=== PATIENT | male | born 1960 | race Caucasian/White ===

== ENCOUNTER 2016-09-12 06:55 | Emergency (ER) | payer BC ==
[2016-09-12] MEDS ORDERED: SODIUM CHLORIDE 0.9% 1,000 ML IV STA ×2 (07:25)
--- NOTE | 2016-09-12 07:28 | ED ---
Dizziness HPI - General Chief Complaint: Dizziness Stated Complaint: Dizzinesss/Headache Time Seen by Provider: 09/12/16 07:09 Source: patient Mode of arrival: ambulatory Limitations: no limitations - History of Present Illness Initial Comments: This is a 56-year-old male who is insulin-dependent diabetic who complains waking up around 5:30 this morning with profound dizziness when he tries get out of bed. He states he was feeling well yesterday he has had no recent cold or flu he also had a generalized headache to [place] pressure that was brief. He states the headache is gone now he does get dizzy when he moves his head up or down her left or right. He denies any focal weakness but does generally feel weak. He does admit that he did not drink any water yesterday he drinks coffee but does not drink a lot of fluids normally. He states she's been having kidney pain intermittently. He also has some pressure when he tries to urinate which is relieved after urinating. No other complaints he does use an insulin pump. MD Complaint: dizziness, other - Related Data Home Medications Medication Instructions Recorded Confirmed Escitalopram [Lexapro] 10 mg PO DAILY 09/12/16 09/12/16 Insulin Regular [humuLIN R] 09/12/16 09/12/16 Nadolol 40 mg PO DAILY 09/12/16 09/12/16 Previous Rx's Medication Instructions Recorded Meclizine [Antivert] 25 mg PO TID #20 tab 09/12/16 Allergies Allergy/AdvReac Type Severity Reaction Status Date / Time vancomycin Allergy Rash/Hives Verified 09/12/16 07:05 Review of Systems ROS Statement: Those systems with pertinent positive or pertinent negative responses have been documented in the HPI. ROS Other: All systems not noted in ROS Statement are negative. Past Medical History Past Medical History: Diabetes Mellitus, Hypertension History of Any Multi-Drug Resistant Organisms: None Reported Past Surgical History: Orthopedic Surgery Additional Past Surgical History / Comment(s): ankle sx Past Psychological History: Depression Smoking Status: Former smoker Past Alcohol Use History: Rare Past Drug Use History: None Reported General Exam - General Exam Comments Initial Comments: This is a well-developed well-nourished awake alert oriented 3 male Limitations: no limitations General appearance: alert, in no apparent distress Head exam: Present: atraumatic, normocephalic, normal inspection Eye exam: Present: normal appearance, PERRL, EOMI. Absent: scleral icterus, conjunctival injection, periorbital swelling ENT exam: Present: mucous membranes dry Neck exam: Present: normal inspection. Absent: tenderness, meningismus, lymphadenopathy Respiratory exam: Present: normal lung sounds bilaterally. Absent: respiratory distress, wheezes, rales, rhonchi, stridor Cardiovascular Exam: Present: regular rate, normal rhythm, normal heart sounds. Absent: systolic murmur, diastolic murmur, rubs, gallop, clicks GI/Abdominal exam: Present: soft, normal bowel sounds. Absent: distended, tenderness, guarding, rebound, rigid Extremities exam: Present: full ROM, normal capillary refill, other (Some evidence of stasis dermatitis). Absent: tenderness, pedal edema, joint swelling , calf tenderness Back exam: Present: normal inspection Neurological exam: Present: alert, oriented X3, CN II-XII intact Psychiatric exam: Present: normal affect, normal mood Skin exam: Present: warm, dry, intact, normal color. Absent: rash Course Vital Signs 09/12/16 06:59 Temperature 97.8 F Pulse Rate 75 Respiratory 18 Rate Blood Pressure 175/85 O2 Sat by Pulse 99 Oximetry Medical Decision Making - Medical Decision Making Did discuss findings with the patient and his . Patient's presentation is consistent with benign positional vertigo. His blood sugar was somewhat elevated. He was instructed to increase his oral fluids as he has not been drinking much water. Follow-up with his doctor return when necessary additionally his symptoms with respect to his bladder likely secondary to prostatism. He will follow-up with his doctor for this. - Lab Data Result diagrams: 09/12/16 07:20 09/12/16 07:20 Lab Results 09/12/16 09/12/16 09/12/16 Range/Units 07:20 07:20 07:20 WBC 6.1 (3.8-10.6) k/uL RBC 4.70 (4.30-5.90) m/uL Hgb 14.3 (13.0-17.5) gm/dL Hct 41.7 (39.0-53.0) % MCV 88.6 (80.0-100.0) fL MCH 30.4 (25.0-35.0) pg MCHC 34.3 (31.0-37.0) g/dL RDW 13.1 (11.5-15.5) % Plt Count 249 (150-450) k/uL Neutrophils % 45 % Lymphocytes % 33 % Monocytes % 11 % Eosinophils % 7 % Basophils % 2 % Neutrophils # 2.8 (1.3-7.7) k/uL Lymphocytes # 2.0 (1.0-4.8) k/uL Monocytes # 0.7 (0-1.0) k/uL Eosinophils # 0.4 (0-0.7) k/uL Basophils # 0.1 (0-0.2) k/uL Sodium 141 (137-145) mmol/L Potassium 4.0 (3.5-5.1) mmol/L Chloride 106 (98-107) mmol/L Carbon Dioxide 26 (22-30) mmol/L Anion Gap 9 mmol/L BUN 17 (9-20) mg/dL Creatinine 0.72 (0.66-1.25) mg/dL Est GFR (MDRD) Af Amer >60 (>60 ml/min/1.73 sqM) Est GFR (MDRD) Non-Af >60 (>60 ml/min/1.73 sqM) Glucose 224 H (74-99) mg/dL Calcium 9.3 (8.4-10.2) mg/dL Magnesium 1.9 (1.6-2.3) mg/dL Total Bilirubin 0.6 (0.2-1.3) mg/dL AST 46 (17-59) U/L ALT 63 (21-72) U/L Alkaline Phosphatase 80 (38-126) U/L Total Creatine Kinase 275 H (55-170) U/L CK-MB (CK-2) 2.8 H* (0.0-2.4) ng/mL CK-MB (CK-2) Rel Index 1.0 Troponin I <0.012 (0.000-0.034) ng/mL Total Protein 7.6 (6.3-8.2) g/dL Albumin 4.3 (3.5-5.0) g/dL Amylase 62 (30-110) U/L Urine Color Urine Appearance (Clear) Urine pH (5.0-8.0) Ur Specific [place] (1.001-1.035) Urine Protein (Negative) Urine Glucose (UA) (Negative) Urine Ketones (Negative) Urine Blood (Negative) Urine Nitrite (Negative) Urine Bilirubin (Negative) Urine Urobilinogen (<2.0) mg/dL Ur Leukocyte Esterase (Negative) 09/12/16 Range/Units 07:45 WBC (3.8-10.6) k/uL RBC (4.30-5.90) m/uL Hgb (13.0-17.5) gm/dL Hct (39.0-53.0) % MCV (80.0-100.0) fL MCH (25.0-35.0) pg MCHC (31.0-37.0) g/dL RDW (11.5-15.5) % Plt Count (150-450) k/uL Neutrophils % % Lymphocytes % % Monocytes % % Eosinophils % % Basophils % % Neutrophils # (1.3-7.7) k/uL Lymphocytes # (1.0-4.8) k/uL Monocytes # (0-1.0) k/uL Eosinophils # (0-0.7) k/uL Basophils # (0-0.2) k/uL Sodium (137-145) mmol/L Potassium (3.5-5.1) mmol/L Chloride (98-107) mmol/L Carbon Dioxide (22-30) mmol/L Anion Gap mmol/L BUN (9-20) mg/dL Creatinine (0.66-1.25) mg/dL Est GFR (MDRD) Af Amer (>60 ml/min/1.73 sqM) Est GFR (MDRD) Non-Af (>60 ml/min/1.73 sqM) Glucose (74-99) mg/dL Calcium (8.4-10.2) mg/dL Magnesium (1.6-2.3) mg/dL Total Bilirubin (0.2-1.3) mg/dL AST (17-59) U/L ALT (21-72) U/L Alkaline Phosphatase (38-126) U/L Total Creatine Kinase (55-170) U/L CK-MB (CK-2) (0.0-2.4) ng/mL CK-MB (CK-2) Rel Index Troponin I (0.000-0.034) ng/mL Total Protein (6.3-8.2) g/dL Albumin (3.5-5.0) g/dL Amylase (30-110) U/L Urine Color Yellow Urine Appearance Clear (Clear) Urine pH 5.5 (5.0-8.0) Ur Specific [place] 1.024 (1.001-1.035) Urine Protein Negative (Negative) Urine Glucose (UA) 4+ H (Negative) Urine Ketones Trace H (Negative) Urine Blood Negative (Negative) Urine Nitrite Negative (Negative) Urine Bilirubin Negative (Negative) Urine Urobilinogen <2.0 (<2.0) mg/dL Ur Leukocyte Esterase Negative (Negative) - Radiology Data Radiology results: report reviewed (I did review the imaging and reports no acute findings.), image reviewed Disposition Clinical Impression: Benign paroxysmal positional vertigo, Dehydration, Hyperglycemia Disposition: HOME SELF-CARE Condition: Good Instructions: Dizziness (ED), Benign Paroxysmal Positional Vertigo (ED), Dehydration (ED) Prescriptions: Meclizine [Antivert] 25 mg PO TID #20 tab
[2016-09-12 07:38] LABS: Basophils # (A) 0.1 k/uL (0-0.2); Basophils % (A) 2 %; CH 30.7; CHCM 34.8; Eosinophils # (A) 0.4 k/uL (0-0.7); Eosinophils % (A) 7 %; HCT 41.7 % (39.0-53.0); HDW 2.45; HGB 14.3 gm/dL (13.0-17.5); Luc # (Auto) 0.17; Luc % (Auto) 3; Lymphocytes % (A) 33 %; MCH 30.4 pg (25.0-35.0); MCHC 34.3 g/dL (31.0-37.0); MCV 88.6 fL (80.0-100.0); Mean Platelet Volume 7.1; Monocytes # (A) 0.7 k/uL (0-1.0); Monocytes % (A) 11 %; Neutrophils # (A) 2.8 k/uL (1.3-7.7); Neutrophils % (A) 45 %; RDW 13.1 % (11.5-15.5); WBC 6.1 k/uL (3.8-10.6); WBC (Perox) 5.91
[2016-09-12 07:58] LABS: ALT 63 U/L (21-72); AST 46 U/L (17-59); Alkaline Phosphatase 80 U/L (38-126); Amylase 62 U/L (30-110); Anion Gap 9 mmol/L; Blood Urea Nitrogen 17 mg/dL (9-20); Calcium 9.3 mg/dL (8.4-10.2); Carbon Dioxide 26 mmol/L (22-30); Chloride 106 mmol/L (98-107); Glucose 224 mg/dL (74-99); Magnesium 1.9 mg/dL (1.6-2.3); Non-African American GFR(MDRD) >60 (>60 ml/min/1.73 sqM); Sodium 141 mmol/L (137-145); Total Bilirubin 0.6 mg/dL (0.2-1.3); Total Protein 7.6 g/dL (6.3-8.2)
[2016-09-12 08:08] LABS: Creatine Kinase 275 U/L (55-170)
[2016-09-12 08:10] LABS: Appearance,Urine Clear (Clear); Bilirubin,Urine Negative (Negative); Glucose,Urine (UA) 4+ (Negative); Ketones,Urine Trace (Negative); Leukocyte Esterase,Urine Negative (Negative); Nitrite,Urine Negative (Negative); PH, Urine 5.5 (5.0-8.0); Protein,Urine Negative (Negative); Specific Gravity,Urine 1.024 (1.001-1.035); UA Billing (MACRO vs. MICRO) CHEM; Urobilinogen,Urine <2.0 mg/dL (<2.0)
[2016-09-12 08:20] LABS: Troponin I <0.012 ng/mL (0.000-0.034)
[2016-09-12 08:22] LABS: Creatine Kinase MB 2.8 ng/mL (0.0-2.4)
--- NOTE | 2016-09-12 09:16 | CT ---
EXAMINATION TYPE: CT brain wo con DATE OF EXAM: 09/12/2016 8:54 AM COMPARISON: NONE INDICATION: Patient having dizziness and alot of head pressure DLP: 922.7 mGycm, Automated exposure control for dose reduction was used. CONTRAST: None CT of the brain is performed utilizing 3 mm thick sections through the posterior fossa and 3 mm thick sections through the remaining calvarium. Study is performed within 24 hours of arrival to the hosp [facility]. No abnormal hyperdensity is present to suggest an acute intracranial hemorrhage. No mass lesion is evident. No acute infarcts are evident. Ventricles and sulci are appropriate for the patient age. Paranasal sinuses and mastoid air cells within the [id number] are clear. IMPRESSIONS: 1. No acute intracranial process.
[2016-09-12] MEDS ORDERED: MECLIZINE 12.5 MG TAB PO STA (09:21)
--- NOTE | 2016-09-12 09:25 | XR ---
EXAMINATION TYPE: XR chest 2V DATE OF EXAM: 09/12/2016 9:15 AM COMPARISON: 08/12/2011 INDICATION: Cough headache TECHNIQUE: Frontal and lateral views of the chest are obtained. FINDINGS: The heart size is normal. The pulmonary vasculature is normal. The lungs are clear. IMPRESSION: 1. No acute pulmonary process.
[2016-09-12 10:04] VITALS: BP 159/80; PULSE 67; RESP 18; TEMP 98.1
== END 2016-09-12 10:06 | disposition home or self-care (01) ==
LOC: EC 06:55
DX: H81.10 Benign paroxysmal vertigo, unspecified ear (principal); E11.65 Type 2 diabetes mellitus with hyperglycemia; E86.0 Dehydration; I87.2 Venous insufficiency (chronic) (peripheral); I10 Essential (primary) hypertension; F32.9 Major depressive disorder, single episode, unspecified; Z87.891 Personal history of nicotine dependence; Z79.4 Long term (current) use of insulin; Z79.899 Other long term (current) drug therapy; Z88.1 Allergy status to other antibiotic agents
CPT/HCPCS: 36415; 70450; 71020; 80053; 81003; 82150; 82550; 82553; 83735; 84484; 85025; 93005; 99284

== ENCOUNTER 2016-10-29 07:07 | Day surgery (SDC) | payer BC ==
[2016-10-27 16:28] VITALS: BMI 33.0
[~2016-10-29 07:07] MED LIST: LACTATED RINGERS 1,000 ML IV SCH; LIDOCAINE 1% 20 ML VIAL (10MG/ML) FOR IV START INTRADERMA PRN
[2016-10-29 07:20] VITALS: TEMP 98.1
[2016-10-29] MEDS ORDERED: LACTATED RINGERS 1,000 ML IV ONE (07:30)
[2016-10-29 07:34] LABS: Glucose,Whole Blood 189 mg/dL (75-99)
[2016-10-29] MEDS ORDERED: LIDOCAINE 1% INJ 10MG/ML (20 ML MDV) ONE (07:43)
[2016-10-29] MEDS ORDERED: PROPOFOL 10 MG/ML 20 ML VIAL IV ONE (07:43)
--- NOTE | 2016-10-29 07:50 | P.GSHP ---
History of Present Illness H&P Date: 10/29/16 Chief Complaint: History of colonic polyps Porter Bath 56-year-old male referred from Dr. Kendrick Hernandez. Patient rents today for colonoscopy. He had a. Colonoscopy 3 years ago which was found have benign colon polyps. Past Medical History Past Medical History: Diabetes Mellitus, Hypertension, Osteoarthritis (OA), Skin Disorder Additional Past Medical History / Comment(s): MIGRAINES, NECK AND BACK PAIN, SORES ON LEGS FROM DIABETES, STATES LEFT ARM NUMBNESS. , EPISODE OF VERTIGO ( AUGUST 2016), NEUROPATHY OF FEET AND HANDS. , OCCASIONAL BLOOD WITH BOWEL MOVEMENTS. History of Any Multi-Drug Resistant Organisms: None Reported Past Surgical History: Heart Catheterization, Orthopedic Surgery Additional Past Surgical History / Comment(s): ankle sx Past Anesthesia/Blood Transfusion Reactions: No Reported Reaction Past Psychological History: Depression Smoking Status: Former smoker Past Alcohol Use History: Rare Additional Past Alcohol Use History / Comment(s): QUIT SMOKING 28 YRS AGO., SMOKED 1-2 PPD. Past Drug Use History: None Reported - Past Family History Sister(s) Family Medical History: Cancer Medications and Allergies Home Medications Medication Instructions Recorded Confirmed Type Nadolol 40 mg PO DAILY 09/12/16 10/27/16 History Atorvastatin [Lipitor] 20 mg PO DAILY 10/27/16 10/27/16 History Insulin Aspart (For Pump) [NovoLOG 1 dose SQ-PUMP CONTINUOUS 10/27/16 10/27/16 History (For Pump)] Allergies Allergy/AdvReac Type Severity Reaction Status Date / Time vancomycin Allergy Rash/Hives Verified 10/27/16 16:09 Surgical - Exam Vital Signs Temp Pulse Resp BP Pulse Ox 98.1 F 74 18 164/76 98 10/29/16 07:19 10/29/16 07:19 10/29/16 07:19 10/29/16 07:19 10/29/16 07:19 - General well developed, no distress - Eyes PERRL - ENT normal pinna - Neck no masses - Respiratory normal expansion - Cardiovascular Rhythm: regular - Abdomen Abdomen: soft, non tender Results - Labs Abnormal Lab Results - Last 24 Hours (Table) 10/29/16 Range/Units 07:28 POC Glucose (mg/dL) 189 H (75-99) mg/dL Assessment and Plan Plan: History of colonic polyps. We'll perform colonoscopy.
--- NOTE | 2016-10-29 08:09 | P.OP ---
Date of Procedure: 10/29/16 Preoperative Diagnosis: History of colonic polyps Postoperative Diagnosis: Rectal polyp Diverticulosis Procedure(s) Performed: colonoscopy Implants: Anesthesia: MAC Surgeon: Stanislav Bennett Pathology: other (Colon polyp) Condition: stable Disposition: PACU Indications for Procedure: Operative Findings: Description of Procedure: The patient's placed on the endoscopy table in the lateral position. He received IV sedation. Digital rectal exam was performed which revealed no abnormalities. The prostate was symmetric without nodules. The flexible colonoscope was then placed patient anus passed throughout the entire colon. The ileocecal valve was visually is. The cecum, ascending, transverse and descending colon appeared normal. In the sigmoid colon there was diverticular changes. Scope was then brought back the rectum and at the 20 cm ranjith there was a large concrete polyp. This removed the snare. Scope was brought back further in the rectum and this appeared normal. Scope was withdrawn for patient.
[2016-10-29 08:12] VITALS: RESP 16
[2016-10-29 08:26] VITALS: BP 102/58; PULSE 66
== END 2016-10-29 09:07 | disposition home or self-care (01) ==
LOC: ORWHC2ENDO 07:07
PROVIDERS: ATTEND Surgery
DX: Z12.11 Encounter for screening for malignant neoplasm of colon (principal); K62.1 Rectal polyp; K57.30 Diverticulosis of large intestine without perforation or abscess without bleeding; Z86.010 Personal history of colon polyps; E11.9 Type 2 diabetes mellitus without complications; G62.9 Polyneuropathy, unspecified; I10 Essential (primary) hypertension; M19.90 Unspecified osteoarthritis, unspecified site; Z79.4 Long term (current) use of insulin; Z87.891 Personal history of nicotine dependence; Z88.1 Allergy status to other antibiotic agents
CPT/HCPCS: 88305; 45385; J2001; J2704

== ENCOUNTER → 2016-12-02 | Outpatient (CLI) | payer BC ==
--- NOTE | 2016-12-02 16:44 | US ---
EXAMINATION TYPE: US kidneys/renal and bladder DATE OF EXAM: 12/02/2016 COMPARISON: NONE CLINICAL HISTORY: 56-year-old male N28.9 KIDNEY PAIN. TECHNIQUE: Multiple sonographic images of the kidneys and bladder were obtained. FINDINGS: EXAM MEASUREMENTS: Right Kidney: 12.2 x 6.7 x 6.4 cm Left Kidney: 12.9 x 6.5 x 6.6 cm No hydronephrosis on either side. The software sales notes scattered echogenic foci during real-time scanning which could represent small nonobstructive calculi. This is not as apparent on the provided images. No gross abnormality of the partially urine distended bladder. IMPRESSION: 1. No hydronephrosis. 2. The software sales indicates echogenic foci in both kidneys during real-time scanning that could repr esent tiny nonobstructive calculi. This is not as apparent on the provided images.
== END ==
LOC: RADUSWWP 15:28
PROVIDERS: ATTEND Family Medicine
DX: N23 Unspecified renal colic (principal)
CPT/HCPCS: 76770

== ENCOUNTER → 2018-08-28 | Outpatient (CLI) | payer BC | LOC: RADMRIMAIN 07:36 | PROVIDERS: ATTEND Psychiatry & Neurology Neurology | DX: Z53.9 Procedure and treatment not carried out, unspecified reason (principal) ==

== ENCOUNTER → 2018-08-28 | Outpatient (CLI) | payer BC ==
--- NOTE | 2018-08-29 08:00 | MR ---
EXAMINATION TYPE: [facility] brain [facility] DATE OF EXAM: 08/28/2018 COMPARISON: CT brain 09/12/2016 HISTORY: TIA TECHNIQUE: Multiplanar, multisequence images of the brain and brainstem is performed without and with IV contras t, utilizing 12 mL intravenous Gadavist . [id number] and postcontrast images obtained through the neck, three-dimensional reconstructions on an alternate workstation. FINDINGS: Diffusion weighted images demonstrate no evidence of a recent infarct or other diffusion ab normality. There is no extra-axial fluid collection. Scattered hyperintensities are present within the periventricular and subcortical white matter on inversion recovery T2-weighted sequences, approxi mately 5-10 lesions are present. Largest lesion in the left frontal region on axial image 16 measures approximately 5 mm. The ventricular system and cisternal spaces are normal in size and appearance. The brain volume is age appropriate. Midline structures demonstrate normal morphology. The craniocervical junction appears within normal limits. Post contrast images demonstrate linear serpiginous enhancement in the posterior parietal lo be on the right suggestive of venous malformation, possible venous angioma. The dural venous sinuses appear patent. The visualized sinuses are remarkable for inflammatory change in the ethmoid air cells , frontal sinus, sphenoid sinus, and the globes are intact. IMPRESSION: Nonspecific white matter demyelination may be due to chronic small vessel ischemia, hyper tension, migraine headaches. There is no restricted diffusion to suggest subacute ischemia. Sinus dis ease. MRA NECK: The innominate artery, left and right common carotid arteries, left and right subclavian ar teries, bilateral vertebral arteries are patent. The right vertebral artery is dominant. Proximal int ernal carotid arteries show no stenosis. There is no evident dissection or aneurysm. Internal and ext ernal carotid arteries are patent. IMPRESSION: No significant stenosis.
== END ==
LOC: RADMRIMAIN 12:30
PROVIDERS: ATTEND Psychiatry & Neurology Neurology
DX: G44.52 New daily persistent headache (NDPH) (principal); G45.9 Transient cerebral ischemic attack, unspecified
CPT/HCPCS: 82565; 70549; 70553; 36415; A9585

== ENCOUNTER 2018-10-16 15:43 | Emergency (ER) | payer BC ==
[2018-10-16 15:51] VITALS: RESP 18
[2018-10-16] MEDS ORDERED: KETOROLAC 30 MG/ML 1 ML VIAL IM STA (16:50)
[2018-10-16] MEDS ORDERED: DIPH,PERTUS(ACELL)TETVAC-LF 0.5 ML VIAL IM ONE (16:55)
--- NOTE | 2018-10-16 17:11 | ED ---
General Adult HPI - General Chief complaint: Extremity Injury, Lower Stated complaint: Nail punture in foot Time Seen by Provider: 10/16/18 15:54 Source: patient Mode of arrival: ambulatory Limitations: no limitations - History of Present Illness Initial comments: Patient is a 58-year-old male presenting to emergency Department with a puncture wound on his right foot. Patient reports earlier today he was moving a piece of wood with an approximately 1 inch nail sticking out of it. Patient reports that he dropped it would and it went into his foot near the right and TP joint. Patient reports he didn't notice the injury until he noticed blood on his shoes. Patient reports that he is a diabetic but denies peripheral neuropathy. Patient reports the pain is alleviated with rest but exacerbated with plantar flexion. Patient reports he is unable to flex or fully extend his toes due to pain. Patient is unaware of his tetanus status. Patient reports taking Aleve at 0700 - Related Data Home Medications Medication Instructions Recorded Confirmed Nadolol 40 mg PO DAILY 09/12/16 10/27/16 Atorvastatin [Lipitor] 20 mg PO DAILY 10/27/16 10/27/16 Insulin Aspart (For Pump) [NovoLOG 1 dose SQ-PUMP CONTINUOUS 10/27/16 10/27/16 (For Pump)] Previous Rx's Medication Instructions Recorded Ciprofloxacin HCl [Cipro] 500 mg PO Q12HR #20 tablet 10/16/18 Allergies Allergy/AdvReac Type Severity Reaction Status Date / Time vancomycin Allergy Rash/Hives Verified 10/16/18 15:46 Review of Systems ROS Statement: Those systems with pertinent positive or pertinent negative responses have been documented in the HPI. ROS Other: All systems not noted in ROS Statement are negative. Past Medical History Past Medical History: Diabetes Mellitus, Hypertension, Osteoarthritis (OA), Skin Disorder Additional Past Medical History / Comment(s): MIGRAINES, NECK AND BACK PAIN, SORES ON LEGS FROM DIABETES, STATES LEFT ARM NUMBNESS. , EPISODE OF VERTIGO (AUGUST 2016), NEUROPATHY OF FEET AND HANDS. , OCCASIONAL BLOOD WITH BOWEL MOVEMENTS. History of Any Multi-Drug Resistant Organisms: None Reported Past Surgical History: Heart Catheterization, Orthopedic Surgery Additional Past Surgical History / Comment(s): ankle sx Past Anesthesia/Blood Transfusion Reactions: No Reported Reaction Past Psychological History: Depression Smoking Status: Former smoker Past Alcohol Use History: Rare Past Drug Use History: None Reported - Past Family History Sister(s) Family Medical History: Cancer General Exam Limitations: no limitations General appearance: alert, in no apparent distress Head exam: Present: atraumatic, normocephalic, normal inspection Eye exam: Present: normal appearance Neck exam: Present: normal inspection Respiratory exam: Present: normal lung sounds bilaterally Cardiovascular Exam: Present: regular rate, normal rhythm, normal heart sounds Right Upper Leg exam: Present: normal inspection, full ROM Knee exam: Present: normal inspection, full ROM Lower Leg exam: Present: normal inspection, full ROM Ankle exam: Present: normal inspection, full ROM Foot/Toe exam: Present: tenderness (Moderate), swelling (Mild), puncture wound (nail). Absent: abrasion, laceration, ecchymosis, deformity, dislocation, tenderness at base of 5th metatarsal, nail avulsion Neurovascular tendon exam: Present: no vascular compromise Gait: observed and limited by pain Neurological exam: Present: alert, oriented X3 Psychiatric exam: Present: normal affect, normal mood Skin exam: Present: warm, normal color Course Vital Signs 10/16/18 15:46 Temperature 98.2 F Pulse Rate 88 Respiratory 18 Rate Blood Pressure 165/92 O2 Sat by Pulse 97 Oximetry Medical Decision Making - Medical Decision Making Patient is a 58-year-old male presented to emergency department with a puncture wound to his right foot. Patient was given tetanus prophylaxis. X-rays negative for any acute dislocations or fractures. Patient advised to alternate between Tylenol and ibuprofen for pain control. Patient will be discharged with Cipro to cover for pseudomonas.. Patient advised to follow with orthopedics. Patient advised to return to emergency department if symptoms worsen. Case discussed with physician. Disposition Clinical Impression: Puncture wound of skin from metal nail Disposition: HOME SELF-CARE Condition: Stable Instructions (If sedation given, give patient instructions): Puncture Wound (DC) Additional Instructions: Please follow prescribed medication as directed. Please follow-up with orthopedics. Please return to emergency department if symptoms worsen. Is patient prescribed a controlled substance at d/c from ED?: No Referrals: Kendrick Salguero DO [Primary Care Provider] - 1-2 days Michael Burdick MD [STAFF PHYSICIAN] - 1-2 days Time of Disposition: 17:37
--- NOTE | 2018-10-16 17:30 | XR ---
Right foot HISTORY: Trauma and pain 2 views of the right foot Bone mineralization, joint spaces and alignment are maintained within the foot. Cortical irregularity at the distal tibia may be due to remote trauma, correlate. There is arthropathy at the tibiotalar j oint. Small plantar calcaneal spur. IMPRESSION: No fracture or dislocation.
[2018-10-16 18:17] VITALS: BP 175/85; PULSE 82; TEMP 98.4
== END 2018-10-16 18:11 | disposition home or self-care (01) ==
LOC: EC 15:43
DX: S91.331A Puncture wound without foreign body, right foot, initial encounter (principal); E11.40 Type 2 diabetes mellitus with diabetic neuropathy, unspecified; I10 Essential (primary) hypertension; Z95.818 Presence of other cardiac implants and grafts; Z87.891 Personal history of nicotine dependence; Z79.4 Long term (current) use of insulin; Z79.899 Other long term (current) drug therapy; Z88.1 Allergy status to other antibiotic agents; W45.0XXA Nail entering through skin, initial encounter; Y92.009 Unspecified place in unspecified non-institutional (private) residence as the place of occurrence of the external cause; Z23 Encounter for immunization; Y93.89 Activity, other specified
CPT/HCPCS: 73620; 90715; 99283; 96372; 90471; J1885

== ENCOUNTER 2019-03-06 00:17 | Observation (INO) | payer BC ==
[2019-03-06] MEDS ORDERED: SODIUM CHLORIDE 0.9% 500 ML 500 ML IV STA (00:40)
[2019-03-06] MEDS ORDERED: MORPHINE SULFATE 4 MG/ML SYRINGE IV STA ×2 (00:40→02:06)
--- NOTE | 2019-03-06 00:50 | ED ---
General Adult HPI - General Source: patient, RN notes reviewed, old records reviewed Mode of arrival: ambulatory Limitations: no limitations <Michael Poe - Last Filed: 03/06/19 03:26> <Mary Grace Pérez - Last Filed: 03/06/19 03:49> - General Chief complaint: Abdominal Pain Stated complaint: Abd Pain Time Seen by Provider: 03/06/19 00:19 - History of Present Illness Initial comments: 59-year-old male patient past history significant for diabetes presents to ED complaining of abdominal pain. Patient reports that beginning approximately 10 PM he began the right lower quadrant, suprapubic pain. Patient also reports that on he had an episode of substernal chest pain. Patient reports they have sensation of some heart fluttering as well. Patient reports that he has had his heart fluttering in the past has worked up by his primary care provider. Denies any chest pain or cardiac complaints at this time. Chief complaint is abdominal pain. Denies other complaints. Systemic: Pt denies fatigue, fever/chills, rash. Pt denies weakness, night sweats, weight loss. Neuro: Pt denies headache, visual disturbances, syncope or pre-syncope. HEENT: Pt denies ocular discharge or irritation, otalgia, rhinorrhea, pharyngitis or notable lymphadenopathy. Cardiopulmonary: Pt denies chest pain, SOB, heart palpitations, dyspnea on exertion. Abdominal/GI: Pt denies v/d. : Pt denies dysuria, burning w/ urination, frequency/urgency. Denies new onset urinary or bowel incontinence. MSK: Pt denies myalgia, loss of strength or function in extremities. Neuro: Pt denies new onset weakness, paresthesias. (Michael Poe) - Related Data Home Medications Medication Instructions Recorded Confirmed Nadolol 40 mg PO DAILY 09/12/16 10/27/16 Atorvastatin [Lipitor] 20 mg PO DAILY 10/27/16 10/27/16 Insulin Aspart (For Pump) [NovoLOG 1 dose SQ-PUMP CONTINUOUS 10/27/16 10/27/16 (For Pump)] Previous Rx's Medication Instructions Recorded Ciprofloxacin HCl [Cipro] 500 mg PO Q12HR #20 tablet 10/16/18 Allergies Allergy/AdvReac Type Severity Reaction Status Date / Time vancomycin Allergy Rash/Hives Verified 10/16/18 15:46 Review of Systems ROS Other: All systems not noted in ROS Statement are negative. <Michael Poe Hao - Last Filed: 03/06/19 03:26> ROS Other: All systems not noted in ROS Statement are negative. <Mary Grace Pérez Kt - Last Filed: 03/06/19 03:49> ROS Statement: Those systems with pertinent positive or pertinent negative responses have been documented in the HPI. Past Medical History Past Medical History: Diabetes Mellitus, Hypertension, Osteoarthritis (OA), Skin Disorder Additional Past Medical History / Comment(s): MIGRAINES, NECK AND BACK PAIN, SORES ON LEGS FROM DIABETES, STATES LEFT ARM NUMBNESS. , EPISODE OF VERTIGO (AUGUST 2016), NEUROPATHY OF FEET AND HANDS. , OCCASIONAL BLOOD WITH BOWEL MOVEMENTS. History of Any Multi-Drug Resistant Organisms: None Reported Past Surgical History: Heart Catheterization, Orthopedic Surgery Additional Past Surgical History / Comment(s): ankle sx Past Anesthesia/Blood Transfusion Reactions: No Reported Reaction Past Psychological History: Depression Smoking Status: Former smoker Past Alcohol Use History: Rare Past Drug Use History: None Reported - Past Family History Sister(s) Family Medical History: Cancer <LuiMichael J - Last Filed: 03/06/19 03:26> General Exam Limitations: no limitations <Michael Poe Hao - Last Filed: 03/06/19 03:26> - General Exam Comments Initial Comments: Constitutional: NAD, AOX3, Pt has pleasant affect. HEENT: NC/AT, trachea midline, neck supple, no lymphadenopathy. Posterior pharynx non erythematous, without exudates. External ears appear normal, without discharge. Mucous membranes moist. Eyes PERRLA, EOM intact. There is no scleral icterus. No pallor noted. Cardiopulmonary: RRR, no murmurs, rubs or gallops, no JVD noted. Lungs CTAB in anterior and posterior barron. No peripheral edema. Abdominal exam: Abdomen soft and non-distended. Abdomen tender to palpation in RLQ and suprapubic regions. Bowel sounds active in LLQ. No hepatosplenomegaly. No ecchymosis Neuro: CN II-XII grossly intact. No nuchal rigidity. No raccon eyes, no rahman sign, no hemotympanum. No cervical spinal tenderness. MSK: No posterior calf tenderness bilaterally, homans sign negative bilaterally. Posterior tibialis and radial pulse +2 bilaterally. Sensation intact in upper and lower extremities. Full active ROM in upper and lower extremities, 5/5 stregnth. (Michael Poe) Course Vital Signs 03/06/19 03/06/19 03/06/19 00:25 02:06 03:45 Temperature 98.5 F Pulse Rate 82 72 76 Respiratory 18 20 20 Rate Blood Pressure 168/84 159/82 138/70 O2 Sat by Pulse 98 99 96 Oximetry Medical Decision Making - Lab Data Result diagrams: 03/06/19 00:49 03/06/19 00:49 <Michael Poe - Last Filed: 03/06/19 03:26> - Lab Data Result diagrams: 03/06/19 00:49 03/06/19 00:49 <Mary Grace Pérez - Last Filed: 03/06/19 03:49> - Medical Decision Making 59-year-old male patient past history significant for diabetes presents to ED complaining of abdominal pain. Patient reports that beginning approximately 10 PM he began the right lower quadrant, suprapubic pain. Patient also reports that on he had an episode of substernal chest pain. Patient reports they have sensation of some heart fluttering as well. Patient reports that he has had his heart fluttering in the past has worked up by his primary care provider. Denies any chest pain or cardiac complaints at this time. Chief complaint is abdominal pain. Denies other complaints. Patient was then stable, afebrile. Physical exam displayed suprapubic right lower quadrant tenderness. Laboratory investigations revealed a leukocytosis of 13. CT abdomen and pelvis displayed acute appendicitis. Patient NPO, initiated on zosyn. Case discussed with Dr. Pérez. (Michael Poe) I personally saw and evaluated the patient, agree with workup and diagnosis of acute appendicitis. Patient care discussed with surgeon Dr. Baer who agrees with plan for admission, NPO, IVF, antibiotics, antiemetic, pain management, plan for surgery later in the day. (Mary Grace Pérez) - Lab Data Lab Results 03/06/19 03/06/19 03/06/19 Range/Units 00:49 00:49 00:49 WBC 13.5 H (3.8-10.6) k/uL RBC 4.50 (4.30-5.90) m/uL Hgb 13.4 (13.0-17.5) gm/dL Hct 40.3 (39.0-53.0) % MCV 89.7 (80.0-100.0) fL MCH 29.8 (25.0-35.0) pg MCHC 33.2 (31.0-37.0) g/dL RDW 12.7 (11.5-15.5) % Plt Count 259 (150-450) k/uL Neutrophils % 67 % Lymphocytes % 17 % Monocytes % 9 % Eosinophils % 4 % Basophils % 1 % Neutrophils # 9.1 H (1.3-7.7) k/uL Lymphocytes # 2.3 (1.0-4.8) k/uL Monocytes # 1.2 H (0-1.0) k/uL Eosinophils # 0.6 (0-0.7) k/uL Basophils # 0.1 (0-0.2) k/uL Sodium 139 (137-145) mmol/L Potassium 4.1 (3.5-5.1) mmol/L Chloride 105 (98-107) mmol/L Carbon Dioxide 24 (22-30) mmol/L Anion Gap 10 mmol/L BUN 16 (9-20) mg/dL Creatinine 0.86 (0.66-1.25) mg/dL Est GFR (CKD-EPI)AfAm >90 (>60 ml/min/1.73 sqM) Est GFR (CKD-EPI)NonAf >90 (>60 ml/min/1.73 sqM) Glucose 112 H (74-99) mg/dL Plasma Lactic Acid Francisco 0.6 L (0.7-2.0) mmol/L Calcium 9.4 (8.4-10.2) mg/dL Total Bilirubin 0.5 (0.2-1.3) mg/dL AST 28 (17-59) U/L ALT 33 (21-72) U/L Alkaline Phosphatase 65 (38-126) U/L Troponin I (0.000-0.034) ng/mL Total Protein 7.8 (6.3-8.2) g/dL Albumin 4.6 (3.5-5.0) g/dL Lipase 249 (23-300) U/L Urine Color Urine Appearance (Clear) Urine pH (5.0-8.0) Ur Specific [place] (1.001-1.035) Urine Protein (Negative) Urine Glucose (UA) (Negative) Urine Ketones (Negative) Urine Blood (Negative) Urine Nitrite (Negative) Urine Bilirubin (Negative) Urine Urobilinogen (<2.0) mg/dL Ur Leukocyte Esterase (Negative) 03/06/19 03/06/19 Range/Units 00:49 01:42 WBC (3.8-10.6) k/uL RBC (4.30-5.90) m/uL Hgb (13.0-17.5) gm/dL Hct (39.0-53.0) % MCV (80.0-100.0) fL MCH (25.0-35.0) pg MCHC (31.0-37.0) g/dL RDW (11.5-15.5) % Plt Count (150-450) k/uL Neutrophils % % Lymphocytes % % Monocytes % % Eosinophils % % Basophils % % Neutrophils # (1.3-7.7) k/uL Lymphocytes # (1.0-4.8) k/uL Monocytes # (0-1.0) k/uL Eosinophils # (0-0.7) k/uL Basophils # (0-0.2) k/uL Sodium (137-145) mmol/L Potassium (3.5-5.1) mmol/L Chloride (98-107) mmol/L Carbon Dioxide (22-30) mmol/L Anion Gap mmol/L BUN (9-20) mg/dL Creatinine (0.66-1.25) mg/dL Est GFR (CKD-EPI)AfAm (>60 ml/min/1.73 sqM) Est GFR (CKD-EPI)NonAf (>60 ml/min/1.73 sqM) Glucose (74-99) mg/dL Plasma Lactic Acid Francisco (0.7-2.0) mmol/L Calcium (8.4-10.2) mg/dL Total Bilirubin (0.2-1.3) mg/dL AST (17-59) U/L ALT (21-72) U/L Alkaline Phosphatase (38-126) U/L Troponin I <0.012 (0.000-0.034) ng/mL Total Protein (6.3-8.2) g/dL Albumin (3.5-5.0) g/dL Lipase (23-300) U/L Urine Color Light Yellow Urine Appearance Clear (Clear) Urine pH 5.5 (5.0-8.0) Ur Specific [place] 1.010 (1.001-1.035) Urine Protein Negative (Negative) Urine Glucose (UA) Negative (Negative) Urine Ketones Negative (Negative) Urine Blood Negative (Negative) Urine Nitrite Negative (Negative) Urine Bilirubin Negative (Negative) Urine Urobilinogen <2.0 (<2.0) mg/dL Ur Leukocyte Esterase Negative (Negative) Disposition Is patient prescribed a controlled substance at d/c from ED?: No <Michael Poe - Last Filed: 03/06/19 03:26> <Mary Grace Pérez - Last Filed: 03/06/19 03:49> Clinical Impression: Acute appendicitis Disposition: ADMITTED IP TO THIS HOSP Condition: Serious
[2019-03-06] MEDS: ONDANSETRON 4 MG/2 ML VIAL IVP STA ×2 (00:53→11:36)
[2019-03-06 01:09] LABS: Basophils # (A) 0.1 k/uL (0-0.2); Basophils % (A) 1 %; Eosinophils # (A) 0.6 k/uL (0-0.7); Eosinophils % (A) 4 %; HCT 40.3 % (39.0-53.0); HGB 13.4 gm/dL (13.0-17.5); Lymphocytes # (A) 2.3 k/uL (1.0-4.8); Lymphocytes % (A) 17 %; MCH 29.8 pg (25.0-35.0); MCHC 33.2 g/dL (31.0-37.0); MCV 89.7 fL (80.0-100.0); Monocytes # (A) 1.2 k/uL (0-1.0); Monocytes % (A) 9 %; Neutrophils # (A) 9.1 k/uL (1.3-7.7); Neutrophils % (A) 67 %; Platelet Count 259 k/uL (150-450); RDW 12.7 % (11.5-15.5); WBC 13.5 k/uL (3.8-10.6)
[2019-03-06 01:11] LABS: ALT 33 U/L (21-72); AST 28 U/L (17-59); African American GFR (CKD) >90 (>60 ml/min/1.73 sqM); Albumin 4.6 g/dL (3.5-5.0); Alkaline Phosphatase 65 U/L (38-126); Anion Gap 10 mmol/L; Blood Urea Nitrogen 16 mg/dL (9-20); Calcium 9.4 mg/dL (8.4-10.2); Carbon Dioxide 24 mmol/L (22-30); Chloride 105 mmol/L (98-107); Glucose 112 mg/dL (74-99); Potassium 4.1 mmol/L (3.5-5.1); Sodium 139 mmol/L (137-145); Total Bilirubin 0.5 mg/dL (0.2-1.3); Total Protein 7.8 g/dL (6.3-8.2)
--- NOTE | 2019-03-06 01:49 | CT ---
EXAMINATION TYPE: CT abdomen pelvis w con DATE OF EXAM: 03/06/2019 COMPARISON: None HISTORY: Epigastric pain CT DLP: 2271.10 mGycm Automated exposure control for dose reduction was used. TECHNIQUE: Helical acquisition of images was performed from the lung bases through the pelvis. CONTRAST: Performed without Oral Contrast and with IV Contrast, patient injected with 100 mL of Isovue 300. FINDINGS: Lung bases are clear. There is no pleural effusion. Heart size is normal. There is no pericardial eff usion. There is small calcified splenic granuloma. Liver shows no focal defect. There are a few small calcif ied gallstones. Bile ducts are not dilated. Pancreas appears normal. Stomach appears normal. There is no adrenal mass. Kidneys have normal size and contour. There is no hydronephrosis. There is normal contrast excretion. There is no retroperitoneal adenopathy. Ureters are not dilated. Bladder d istends smoothly. There is no inguinal hernia. There is no free fluid in the pelvis. There is fat str anding the right lower quadrant. There is thickened fluid-filled appendix that measures 13 mm. There is no ascites. There is no bowel obstruction. There is small umbilical hernia that contains fat . There is no evidence of free air. Lumbar vertebra have normal alignment. Posterior elements are int act. Bony pelvis is intact. There is no lumbar compression fracture. IMPRESSION: THICKENED FLUID-FILLED APPENDIX WITH SURROUNDING INFLAMMATORY CHANGES RELATED TO ACUTE APPENDICITIS. CHOLELITHIASIS.
[2019-03-06] MEDS ORDERED: PIPERACILLIN-TAZOBACTAM 3.375 GM in SODIUM CHLORIDE 0.9% 100 ML IVPB STA (01:51)
[2019-03-06 01:54] LABS: Appearance,Urine Clear (Clear); Bilirubin,Urine Negative (Negative); Blood,Urine Negative (Negative); Color,Urine Light Yellow; Glucose,Urine (UA) Negative (Negative); Ketones,Urine Negative (Negative); Leukocyte Esterase,Urine Negative (Negative); Nitrite,Urine Negative (Negative); PH, Urine 5.5 (5.0-8.0); Protein,Urine Negative (Negative); Urobilinogen,Urine <2.0 mg/dL (<2.0)
[2019-03-06] MEDS ORDERED: NALOXONE 0.4 MG/ML 1 ML VIAL IV PRN (03:24)
[2019-03-06] MEDS ORDERED: HYDROmorphone 0.5 MG/0.5 ML SYRINGE IVP PRN (03:24)
[2019-03-06] MEDS ORDERED: MORPHINE SULFATE 4 MG/ML SYRINGE IV PRN (03:24)
--- NOTE | 2019-03-06 03:30 | ED ---
Medical Decision Making - Lab Data Result diagrams: 03/06/19 00:49 03/06/19 00:49 Lab Results 03/06/19 03/06/19 03/06/19 Range/Units 00:49 00:49 00:49 WBC 13.5 H (3.8-10.6) k/uL RBC 4.50 (4.30-5.90) m/uL Hgb 13.4 (13.0-17.5) gm/dL Hct 40.3 (39.0-53.0) % MCV 89.7 (80.0-100.0) fL MCH 29.8 (25.0-35.0) pg MCHC 33.2 (31.0-37.0) g/dL RDW 12.7 (11.5-15.5) % Plt Count 259 (150-450) k/uL Neutrophils % 67 % Lymphocytes % 17 % Monocytes % 9 % Eosinophils % 4 % Basophils % 1 % Neutrophils # 9.1 H (1.3-7.7) k/uL Lymphocytes # 2.3 (1.0-4.8) k/uL Monocytes # 1.2 H (0-1.0) k/uL Eosinophils # 0.6 (0-0.7) k/uL Basophils # 0.1 (0-0.2) k/uL Sodium 139 (137-145) mmol/L Potassium 4.1 (3.5-5.1) mmol/L Chloride 105 (98-107) mmol/L Carbon Dioxide 24 (22-30) mmol/L Anion Gap 10 mmol/L BUN 16 (9-20) mg/dL Creatinine 0.86 (0.66-1.25) mg/dL Est GFR (CKD-EPI)AfAm >90 (>60 ml/min/1.73 sqM) Est GFR (CKD-EPI)NonAf >90 (>60 ml/min/1.73 sqM) Glucose 112 H (74-99) mg/dL Plasma Lactic Acid Francisco 0.6 L (0.7-2.0) mmol/L Calcium 9.4 (8.4-10.2) mg/dL Total Bilirubin 0.5 (0.2-1.3) mg/dL AST 28 (17-59) U/L ALT 33 (21-72) U/L Alkaline Phosphatase 65 (38-126) U/L Troponin I (0.000-0.034) ng/mL Total Protein 7.8 (6.3-8.2) g/dL Albumin 4.6 (3.5-5.0) g/dL Lipase 249 (23-300) U/L Urine Color Urine Appearance (Clear) Urine pH (5.0-8.0) Ur Specific [place] (1.001-1.035) Urine Protein (Negative) Urine Glucose (UA) (Negative) Urine Ketones (Negative) Urine Blood (Negative) Urine Nitrite (Negative) Urine Bilirubin (Negative) Urine Urobilinogen (<2.0) mg/dL Ur Leukocyte Esterase (Negative) 03/06/19 03/06/19 Range/Units 00:49 01:42 WBC (3.8-10.6) k/uL RBC (4.30-5.90) m/uL Hgb (13.0-17.5) gm/dL Hct (39.0-53.0) % MCV (80.0-100.0) fL MCH (25.0-35.0) pg MCHC (31.0-37.0) g/dL RDW (11.5-15.5) % Plt Count (150-450) k/uL Neutrophils % % Lymphocytes % % Monocytes % % Eosinophils % % Basophils % % Neutrophils # (1.3-7.7) k/uL Lymphocytes # (1.0-4.8) k/uL Monocytes # (0-1.0) k/uL Eosinophils # (0-0.7) k/uL Basophils # (0-0.2) k/uL Sodium (137-145) mmol/L Potassium (3.5-5.1) mmol/L Chloride (98-107) mmol/L Carbon Dioxide (22-30) mmol/L Anion Gap mmol/L BUN (9-20) mg/dL Creatinine (0.66-1.25) mg/dL Est GFR (CKD-EPI)AfAm (>60 ml/min/1.73 sqM) Est GFR (CKD-EPI)NonAf (>60 ml/min/1.73 sqM) Glucose (74-99) mg/dL Plasma Lactic Acid Francisco (0.7-2.0) mmol/L Calcium (8.4-10.2) mg/dL Total Bilirubin (0.2-1.3) mg/dL AST (17-59) U/L ALT (21-72) U/L Alkaline Phosphatase (38-126) U/L Troponin I <0.012 (0.000-0.034) ng/mL Total Protein (6.3-8.2) g/dL Albumin (3.5-5.0) g/dL Lipase (23-300) U/L Urine Color Light Yellow Urine Appearance Clear (Clear) Urine pH 5.5 (5.0-8.0) Ur Specific [place] 1.010 (1.001-1.035) Urine Protein Negative (Negative) Urine Glucose (UA) Negative (Negative) Urine Ketones Negative (Negative) Urine Blood Negative (Negative) Urine Nitrite Negative (Negative) Urine Bilirubin Negative (Negative) Urine Urobilinogen <2.0 (<2.0) mg/dL Ur Leukocyte Esterase Negative (Negative) - EKG Data -: EKG Interpreted by Me EKG Comments: Interim rate 65, [place] interval 160, curious 88, QT/QTC 384/39. Normal sinus rhythm, normal EKG, no concern for acute ischemia. Disposition Clinical Impression: Acute appendicitis Disposition: ADMITTED IP TO THIS [facility] Condition: Serious Is patient prescribed a controlled substance at d/c from ED?: No Referrals: Kendrick Salguero DO [Primary Care Provider] - 1-2 days
[2019-03-06] MEDS: SODIUM CHLORIDE 0.9% 1,000 ML IV SCH ×2 (04:22→22:42)
[2019-03-06 05:04] LABS: Glucose,Whole Blood 64 mg/dL (75-99)
[2019-03-06 05:20] LABS: Glucose,Whole Blood 67 mg/dL (75-99)
[2019-03-06] MEDS: ONDANSETRON 4 MG/2 ML VIAL IVP PRN ×2 (05:32→14:35)
[2019-03-06 05:34] LABS: Glucose,Whole Blood 70 mg/dL (75-99)
[2019-03-06 06:38] LABS: Glucose,Whole Blood 87 mg/dL (75-99)
[2019-03-06] MEDS: PIPERACILLIN-TAZOBACTAM 3.375 GM in SODIUM CHLORIDE 0.9% 100 ML IVPB SCH ×2 (07:53→16:30)
[2019-03-06] MEDS: DEXTROSE 5%-0.9% NACL 1,000 ML IV SCH ×3 (08:34→22:42)
--- NOTE | 2019-03-06 08:47 | P.GSHP ---
<Adelaida Blum A - Last Filed: 03/06/19 08:42> History of Present Illness H&P Date: 03/06/19 Chief Complaint: abdominal pain CHIEF COMPLAINT: abdominal pain HISTORY OF PRESENT ILLNESS: 59 year old male who presents to the hospital with a chief complaint of abdominal pain. Patient states his abdominal pain began yesterday around 1800. He was not doing anything strenuous at the time. He reports his pain is mostly in the suprapubic region and then radiated to his right lower quadrant. Denies nausea or vomiting. Denies diarrhea or constipation. Denies fever or chills. PAST MEDICAL HISTORY: See list. PAST SURGICAL HISTORY: See list. SOCIAL HISTORY: No illicit drug use. REVIEW OF SYSTEMS: CONSTITUTIONAL: Denies fever or chills. HEENT: Denies blurred vision, vision changes, or eye pain. Denies hemoptysis CARDIOVASCULAR: Denies chest pain or pressure. RESPIRATORY: No shortness of breath. GASTROINTESTINAL: Refer to HPI for pertinent findings HEMATOLOGIC: Denies bleeding disorders. GENITOURINARY: Denies any blood in urine. SKIN: Denies pruitis. Denies rash. PHYSICAL EXAM: VITAL SIGNS: Reviewed. GENERAL: Well-developed in no acute distress. HEENT: No sclera icterus. Extraocular movements grossly intact. Moist buccal mucosa. Head is atraumatic, normocephalic. ABDOMEN: Soft. Nondistended. Tenderness to right lower quadrant. No peritoneal signs. NEUROLOGIC: Alert and oriented. Cranial nerves II through XII grossly intact. LABORATORY DATA: WBC 13.5. Hemoglobin 13.4. IMAGING: CT abdomen and pelvis: Thickened fluid-filled appendix with surrounding inflammatory changes related to acute appendicitis. Cholelithiasis ASSESSMENT: 1. Abdominal pain 2. Acute appendicitis PLAN: 1. NPO 2. Continue IV fluids 3. Continue Zosyn 4. Patient to undergo laparoscopic appendectomy today with Dr. Bennett Nurse practitioner note has been reviewed by physician. Signing provider agrees with the documented findings, assessment, and plan of care. Past Medical History Past Medical History: Diabetes Mellitus, Hypertension, Osteoarthritis (OA), Skin Disorder Additional Past Medical History / Comment(s): MIGRAINES, NECK AND BACK PAIN, SORES ON LEGS FROM DIABETES, STATES LEFT ARM NUMBNESS. , EPISODE OF VERTIGO (AUGUST 2016), NEUROPATHY OF FEET AND HANDS. , OCCASIONAL BLOOD WITH BOWEL MOVEMENTS. History of Any Multi-Drug Resistant Organisms: None Reported Past Surgical History: Heart Catheterization, Orthopedic Surgery Additional Past Surgical History / Comment(s): ankle sx Past Anesthesia/Blood Transfusion Reactions: No Reported Reaction Smoking Status: Former smoker - Past Family History Sister(s) Family Medical History: Cancer Medications and Allergies Home Medications Medication Instructions Recorded Confirmed Type Nadolol 20 mg PO DAILY 09/12/16 03/06/19 History Atorvastatin [Lipitor] 20 mg PO DAILY 10/27/16 03/06/19 History Insulin Aspart (For Pump) [NovoLOG 1 dose SQ-PUMP CONTINUOUS 10/27/16 03/06/19 History (For Pump)] Aspirin [Adult Low Dose Aspirin EC] 81 mg PO DAILY 03/06/19 03/06/19 History Baclofen [Lioresal] 20 mg PO TID PRN 03/06/19 03/06/19 History Losartan [Cozaar] 50 mg PO BID 03/06/19 03/06/19 History Ubidecarenone [Co Q-10] 200 mg PO DAILY 03/06/19 03/06/19 History Allergies Allergy/AdvReac Type Severity Reaction Status Date / Time vancomycin Allergy Rash/Hives Verified 03/06/19 07:30 Surgical - Exam Vital Signs Temp Pulse Resp BP Pulse Ox 98.5 F 82 18 168/84 98 03/06/19 00:25 03/06/19 00:25 03/06/19 00:25 03/06/19 00:25 03/06/19 00:25 Results - Labs 03/06/19 00:49 03/06/19 00:49 Abnormal Lab Results - Last 24 Hours (Table) 03/06/19 03/06/19 03/06/19 Range/Units 00:49 00:49 00:49 WBC 13.5 H (3.8-10.6) k/uL Neutrophils # 9.1 H (1.3-7.7) k/uL Monocytes # 1.2 H (0-1.0) k/uL Glucose 112 H (74-99) mg/dL POC Glucose (mg/dL) (75-99) mg/dL Plasma Lactic Acid Francisco 0.6 L (0.7-2.0) mmol/L 03/06/19 03/06/19 03/06/19 Range/Units 05:03 05:19 05:33 WBC (3.8-10.6) k/uL Neutrophils # (1.3-7.7) k/uL Monocytes # (0-1.0) k/uL Glucose (74-99) mg/dL POC Glucose (mg/dL) 64 L 67 L 70 L (75-99) mg/dL Plasma Lactic Acid Francisco (0.7-2.0) mmol/L Diabetes panel 03/06/19 Range/Units 00:49 Sodium 139 (137-145) mmol/L Potassium 4.1 (3.5-5.1) mmol/L Chloride 105 (98-107) mmol/L Carbon Dioxide 24 (22-30) mmol/L BUN 16 (9-20) mg/dL Creatinine 0.86 (0.66-1.25) mg/dL Glucose 112 H (74-99) mg/dL Calcium 9.4 (8.4-10.2) mg/dL AST 28 (17-59) U/L ALT 33 (21-72) U/L Alkaline Phosphatase 65 (38-126) U/L Total Protein 7.8 (6.3-8.2) g/dL Albumin 4.6 (3.5-5.0) g/dL Calcium panel 03/06/19 Range/Units 00:49 Calcium 9.4 (8.4-10.2) mg/dL Albumin 4.6 (3.5-5.0) g/dL Pituitary panel 03/06/19 Range/Units 00:49 Sodium 139 (137-145) mmol/L Potassium 4.1 (3.5-5.1) mmol/L Chloride 105 (98-107) mmol/L Carbon Dioxide 24 (22-30) mmol/L BUN 16 (9-20) mg/dL Creatinine 0.86 (0.66-1.25) mg/dL Glucose 112 H (74-99) mg/dL Calcium 9.4 (8.4-10.2) mg/dL Adrenal panel 03/06/19 Range/Units 00:49 Sodium 139 (137-145) mmol/L Potassium 4.1 (3.5-5.1) mmol/L Chloride 105 (98-107) mmol/L Carbon Dioxide 24 (22-30) mmol/L BUN 16 (9-20) mg/dL Creatinine 0.86 (0.66-1.25) mg/dL Glucose 112 H (74-99) mg/dL Calcium 9.4 (8.4-10.2) mg/dL Total Bilirubin 0.5 (0.2-1.3) mg/dL AST 28 (17-59) U/L ALT 33 (21-72) U/L Alkaline Phosphatase 65 (38-126) U/L Total Protein 7.8 (6.3-8.2) g/dL Albumin 4.6 (3.5-5.0) g/dL <Stanislav Bennett - Last Filed: 03/06/19 11:44> Surgical - Exam Vital Signs Temp Pulse Resp BP Pulse Ox 98.5 F 82 18 168/84 98 03/06/19 00:25 03/06/19 00:25 03/06/19 00:25 03/06/19 00:25 03/06/19 00:25 Results - Labs 03/06/19 00:49 03/06/19 00:49 Abnormal Lab Results - Last 24 Hours (Table) 03/06/19 03/06/19 03/06/19 Range/Units 00:49 00:49 00:49 WBC 13.5 H (3.8-10.6) k/uL Neutrophils # 9.1 H (1.3-7.7) k/uL Monocytes # 1.2 H (0-1.0) k/uL Glucose 112 H (74-99) mg/dL POC Glucose (mg/dL) (75-99) mg/dL Plasma Lactic Acid Francisco 0.6 L (0.7-2.0) mmol/L 03/06/19 03/06/19 03/06/19 Range/Units 05:03 05:19 05:33 WBC (3.8-10.6) k/uL Neutrophils # (1.3-7.7) k/uL Monocytes # (0-1.0) k/uL Glucose (74-99) mg/dL POC Glucose (mg/dL) 64 L 67 L 70 L (75-99) mg/dL Plasma Lactic Acid Francisco (0.7-2.0) mmol/L 03/06/19 Range/Units 11:26 WBC (3.8-10.6) k/uL Neutrophils # (1.3-7.7) k/uL Monocytes # (0-1.0) k/uL Glucose (74-99) mg/dL POC Glucose (mg/dL) 149 H (75-99) mg/dL Plasma Lactic Acid Francisco (0.7-2.0) mmol/L Diabetes panel 03/06/19 Range/Units 00:49 Sodium 139 (137-145) mmol/L Potassium 4.1 (3.5-5.1) mmol/L Chloride 105 (98-107) mmol/L Carbon Dioxide 24 (22-30) mmol/L BUN 16 (9-20) mg/dL Creatinine 0.86 (0.66-1.25) mg/dL Glucose 112 H (74-99) mg/dL Calcium 9.4 (8.4-10.2) mg/dL AST 28 (17-59) U/L ALT 33 (21-72) U/L Alkaline Phosphatase 65 (38-126) U/L Total Protein 7.8 (6.3-8.2) g/dL Albumin 4.6 (3.5-5.0) g/dL Calcium panel 03/06/19 Range/Units 00:49 Calcium 9.4 (8.4-10.2) mg/dL Albumin 4.6 (3.5-5.0) g/dL Pituitary panel 03/06/19 Range/Units 00:49 Sodium 139 (137-145) mmol/L Potassium 4.1 (3.5-5.1) mmol/L Chloride 105 (98-107) mmol/L Carbon Dioxide 24 (22-30) mmol/L BUN 16 (9-20) mg/dL Creatinine 0.86 (0.66-1.25) mg/dL Glucose 112 H (74-99) mg/dL Calcium 9.4 (8.4-10.2) mg/dL Adrenal panel 03/06/19 Range/Units 00:49 Sodium 139 (137-145) mmol/L Potassium 4.1 (3.5-5.1) mmol/L Chloride 105 (98-107) mmol/L Carbon Dioxide 24 (22-30) mmol/L BUN 16 (9-20) mg/dL Creatinine 0.86 (0.66-1.25) mg/dL Glucose 112 H (74-99) mg/dL Calcium 9.4 (8.4-10.2) mg/dL Total Bilirubin 0.5 (0.2-1.3) mg/dL AST 28 (17-59) U/L ALT 33 (21-72) U/L Alkaline Phosphatase 65 (38-126) U/L Total Protein 7.8 (6.3-8.2) g/dL Albumin 4.6 (3.5-5.0) g/dL Assessment and Plan Plan: Laparoscopic appendectomy today.
[2019-03-06] MEDS ORDERED: METOCLOPRAMIDE 5 MG/ML 2 ML VIAL IVP STA (08:58)
[2019-03-06] MEDS: FAMOTIDINE 20 MG/2 ML VIAL IV SCH ×2 (09:08→21:56)
[2019-03-06 11:28] LABS: Glucose,Whole Blood 149 mg/dL (75-99)
[2019-03-06] MEDS ORDERED: IV FLUID CONTINUATION 1,000 ML IV ONE (11:30)
[2019-03-06] MEDS ORDERED: SCOPOLAMINE 1.5MG/72HR PATCH TRANSDERM ONE (11:36)
[2019-03-06] MEDS ORDERED: NEOSTIGMINE 1 MG/ML 10 ML VIAL ONE (12:07)
[2019-03-06] MEDS ORDERED: MIDAZOLAM 2 MG/2 ML VIAL ONE (12:07)
[2019-03-06] MEDS ORDERED: KETOROLAC 30 MG/ML 1 ML VIAL ONE (12:07)
[2019-03-06] MEDS ORDERED: GLYCOPYRROLATE 0.2 MG/ML 2 ML VIAL ONE (12:07)
[2019-03-06] MEDS ORDERED: PROPOFOL 10 MG/ML 20 ML VIAL IV ONE (12:07)
[2019-03-06] MEDS ORDERED: ROCURONIUM BROMIDE 10 MG/ML 10 ML VIAL IV ONE (12:07)
[2019-03-06] MEDS ORDERED: LIDOCAINE 1% INJ 10MG/ML (20 ML MDV) ONE (12:07)
[2019-03-06] MEDS ORDERED: fentaNYL (PF) 50 MCG/ML 2 ML AMP ONE (12:07)
[2019-03-06] MEDS ORDERED: SUCCINYLCHOLINE CHLORIDE 100 MG/5 ML SYR IV ONE (12:07)
[2019-03-06] MEDS ORDERED: LACTATED RINGERS 1,000 ML IV ONE ×2 (12:13)
[2019-03-06] MEDS ORDERED: BUPIVACAINE (PF) 0.25% 30 ML VIAL SQ ONE ×2 (12:23→12:25)
--- NOTE | 2019-03-06 12:47 | P.OP ---
Date of Procedure: 03/06/19 Preoperative Diagnosis: Acute appendicitis Postoperative Diagnosis: Acute appendicitis with microperforation Procedure(s) Performed: Laparoscopic appendectomy Anesthesia: EDWARDO Surgeon: Stanislav Bennett Estimated Blood Loss (ml): 5 Pathology: other (Appendix) Condition: stable Disposition: PACU Description of Procedure: HarThe patient's placed on the operating table in the supine position. The patient received general anesthesia. The abdomen was prepped and draped in the usual sterile fashion. The skin was anesthetized 1% local Xylocaine at the trocar sites. Using an 11 blade the skin was incised at the umbilicus. The umbilicus was grasped with a Elizabeth clamp and then a Veress needle was placed into the peritoneal cavity. Position of the Veress needle was confirmed with positive drop test. After adequate insufflation a 5 mm trocar was placed into the peritoneal cavity. The abdomen was further insufflated. And then the laparoscope was placed in the peritoneal cavity. Next a 5 mm trocar was placed in the midline suprapubic position. And then a 10 mm trocar was placed in the midline epigastric position. The patient was rotated with the right side up and in Trendelenburg. The appendix was visualized. The appendix appeared to be inflamed. It was evidence of microperforation The appendix was grasped and then using the Harmonic scissors the mesoappendix was divided. A PDS Endoloop was then placed around the base of the appendix. And then the appendix was divided using Harmonic scissors. The appendix was placed into an Endo Catch and brought out through the 10 mm trocar site. The abdomen was irrigated. There is no bleeding seen. The trochars withdrawn. The skin was closed interrupted 3-0 Monocryl suture. Dermabond dressing was applied. Patient was sent to recovery room in stable condition.
[2019-03-06 13:54] LABS: Glucose,Whole Blood 168 mg/dL (75-99)
[2019-03-06] MEDS: NADOLOL 20 MG TAB PO SCH (13:58)
[2019-03-06 16:30] LABS: Glucose,Whole Blood 173 mg/dL (75-99)
--- NOTE | 2019-03-06 17:49 | P.CONS ---
History of Present Illness - Reason for Consult Consult date: 03/06/19 Medical management diabetes Requesting physician: Stanislav Bennett - Chief Complaint Acute Right lower quadrant abdominal pain - History of Present Illness This is 59-year-old gentleman with history of diabetes mellitus, hypertension, ostial arthritis, and skin disorder, migraines, neuropathy, cardiac catheterization, depression, former nicotine dependence presented to the ER with complaints of right lower quadrant abdominal pain that initially started periumbilical, radiating to right lower quadrant that began yesterday around 1800. Denies nausea vomiting, constipation or diarrhea. EKG normal sinus rhythm, troponin negative. Denies chest pain, palpitations or shortness of breath. Denies fever or chills. Afebrile, WBC 13.5. CT of abdomen and pelvis reported thickened fluid filled appendix with surrounding inflammatory changes related to acute appendicitis, cholelithiasis, small umbilical hernia, no evidence of free air, no free fluid in the pelvis.NPO, with insulin pump, developed hypoglycemia this morning with blood sugars down to 64. IV fluids adjusted to D5W, while awaiting for surgery. Review of Systems ROS Other: All systems not noted in ROS Statement are negative. ROS Statement: Those systems with pertinent positive or pertinent negative responses have been documented in the HPI. Past Medical History Past Medical History: Diabetes Mellitus, Hypertension, Osteoarthritis (OA), Skin Disorder Additional Past Medical History / Comment(s): MIGRAINES, NECK AND BACK PAIN, SORES ON LEGS FROM DIABETES, STATES LEFT ARM NUMBNESS. , EPISODE OF VERTIGO (AUGUST 2016), NEUROPATHY OF FEET AND HANDS. , OCCASIONAL BLOOD WITH BOWEL MOVEMENTS. History of Any Multi-Drug Resistant Organisms: None Reported Past Surgical History: Heart Catheterization, Orthopedic Surgery Additional Past Surgical History / Comment(s): ankle sx Past Anesthesia/Blood Transfusion Reactions: No Reported Reaction Smoking Status: Former smoker - Past Family History Sister(s) Family Medical History: Cancer Medications and Allergies Home Medications Medication Instructions Recorded Confirmed Type Nadolol 20 mg PO DAILY 09/12/16 03/06/19 History Atorvastatin [Lipitor] 20 mg PO DAILY 10/27/16 03/06/19 History Insulin Aspart (For Pump) [NovoLOG 1 dose SQ-PUMP CONTINUOUS 10/27/16 03/06/19 History (For Pump)] Aspirin [Adult Low Dose Aspirin EC] 81 mg PO DAILY 03/06/19 03/06/19 History Baclofen [Lioresal] 20 mg PO TID PRN 03/06/19 03/06/19 History Losartan [Cozaar] 50 mg PO BID 03/06/19 03/06/19 History Ubidecarenone [Co Q-10] 200 mg PO DAILY 03/06/19 03/06/19 History Allergies Allergy/AdvReac Type Severity Reaction Status Date / Time vancomycin Allergy Rash/Hives Verified 03/06/19 07:30 Physical Exam Vitals: Vital Signs Temp Pulse Pulse Resp BP BP Pulse Ox 03/06/19 08:00 72 18 03/06/19 07:15 97.7 F 72 18 130/66 97 03/06/19 04:00 98.1 F 73 18 150/70 99 03/06/19 03:45 76 20 138/70 96 03/06/19 02:06 72 20 159/82 99 03/06/19 00:25 98.5 F 82 18 168/84 98 Intake and Output 03/05/19 03/06/19 03/06/19 22:59 06:59 14:59 Intake Total 150 Balance 150 Intake: Amount of Fluid Infused ( 150 ml) Other: # Voids 1 Weight 116.573 kg PHYSICAL EXAM: VITAL SIGNS: As above GENERAL: Sitting up in bed, no acute distress HEENT: Conjunctivae normal. eyes normal. NECK: No JVD. No thyroid enlargement. No LNs CARDIOVASCULAR: S1, S2 regular.. No murmur RESPIRATION: Breath sounds diminished in the bases. No rhonchi or crackles. No bronchial breathing. ABDOMEN: Soft, mildly distended, right lower quadrant tenderness .No guarding. no masses palpable. No ascites, No hepatosplenomegaly.Bowel sounds heard. LEGS: No edema. no swelling . PSYCHIATRY: Alert and oriented X3, mood and affect normal. NERVOUS SYSTEM: Cranial N 2-12 grossly normal. Moves all 4 limbs. Diffuse weakness No focal deficits. Strength and sensation grossly intact.. Skin: no rash Lymphatic system. No LN neck axilla or groin. Results CBC & Chem 7: 03/06/19 00:49 03/06/19 00:49 Labs: Abnormal Lab Results - Last 24 Hours (Table) 03/06/19 03/06/19 03/06/19 Range/Units 00:49 00:49 00:49 WBC 13.5 H (3.8-10.6) k/uL Neutrophils # 9.1 H (1.3-7.7) k/uL Monocytes # 1.2 H (0-1.0) k/uL Glucose 112 H (74-99) mg/dL POC Glucose (mg/dL) (75-99) mg/dL Plasma Lactic Acid Francisco 0.6 L (0.7-2.0) mmol/L 03/06/19 03/06/19 03/06/19 Range/Units 05:03 05:19 05:33 WBC (3.8-10.6) k/uL Neutrophils # (1.3-7.7) k/uL Monocytes # (0-1.0) k/uL Glucose (74-99) mg/dL POC Glucose (mg/dL) 64 L 67 L 70 L (75-99) mg/dL Plasma Lactic Acid Francisco (0.7-2.0) mmol/L Assessment and Plan Assessment: -Right lower quadrant Abdominal pain, Acute appendicitis -Diabetes mellitus, with insulin pump; nothing by mouth, hypoglycemic -Neuropathy -Hypertension -Osteoarthritis -Depression -Former nicotine dependence Plan: Continue on current medication regime ,monitoring and symptomatic treatment. Maintain Zosyn. GI prophylaxis in place with Pepcid. NPO.Hypoglycemic this morning, insulin pump discontinued. IV fluids changed to D5W. Surgery pending. Home meds reviewed and resumed accordingly. Thank you Dr. Bennett for the consult. The impression and plan of care has been dictated as directed. : I performed a history and examination of this patient, discussed the same with the dictator. I agree with the dictator's note ,documented as a scribe. Any additional findings or plans will be noted.
[2019-03-06] MEDS ORDERED: ACETAMINOPHEN TAB 325 MG TAB PO PRN (18:37)
[2019-03-06] MEDS ORDERED: METOCLOPRAMIDE 5 MG/ML 2 ML VIAL IVP PRN (18:38)
[2019-03-06 18:56] LABS: Glucose,Whole Blood 178 mg/dL (75-99)
[2019-03-06 20:02] LABS: Glucose,Whole Blood 220 mg/dL (75-99)
[2019-03-06 21:30] LABS: Glucose,Whole Blood 175 mg/dL (75-99)
[2019-03-07] MEDS ORDERED: HYDROmorphone 0.5 MG/0.5 ML SYRINGE ONE (00:37)
[2019-03-07 07:18] LABS: Glucose,Whole Blood 125 mg/dL (75-99)
[2019-03-07 07:19] LABS: Glucose,Whole Blood 218 mg/dL (75-99)
[2019-03-07] MEDS: PIPERACILLIN-TAZOBACTAM 3.375 GM in SODIUM CHLORIDE 0.9% 100 ML IVPB SCH ×3 (07:41→16:31)
[2019-03-07 08:00] LABS: Basophils # (A) 0.1 k/uL (0-0.2); Basophils % (A) 1 %; Eosinophils % (A) 0 %; HCT 35.3 % (39.0-53.0); HGB 11.4 gm/dL (13.0-17.5); Lymphocytes % (A) 10 %; MCH 29.8 pg (25.0-35.0); MCHC 32.3 g/dL (31.0-37.0); MCV 92.2 fL (80.0-100.0); Mean Platelet Volume 7.4; Monocytes # (A) 1.1 k/uL (0-1.0); Monocytes % (A) 11 %; Neutrophils # (A) 7.7 k/uL (1.3-7.7); Neutrophils % (A) 76 %; Platelet Count 192 k/uL (150-450); RBC 3.83 m/uL (4.30-5.90); RDW 12.9 % (11.5-15.5); WBC 10.2 k/uL (3.8-10.6)
[2019-03-07] MEDS: DEXTROSE 5%-0.9% NACL 1,000 ML IV SCH (08:20)
[2019-03-07] MEDS: NADOLOL 20 MG TAB PO SCH (08:26)
[2019-03-07] MEDS: FAMOTIDINE 20 MG/2 ML VIAL IV SCH ×2 (08:26→20:21)
[2019-03-07] MEDS: HYDROcodone/APAP 5-325MG 1 EACH TAB PO PRN ×3 (10:34→23:03)
[2019-03-07] MEDS ORDERED: KETOROLAC 30 MG/ML 1 ML VIAL IVP PRN (11:14)
--- NOTE | 2019-03-07 11:16 | P.PN ---
Subjective Progress Note Date: 03/07/19 CHIEF COMPLAINT: abdominal pain HISTORY OF PRESENT ILLNESS: Patient is status post laparoscopic appendectomy. POD #1. Patient continues to report significant pain this morning. He is tolerating clear liquid diet. Denies nausea or vomiting. Patient has been up ambulating in the hallway. PHYSICAL EXAM: VITAL SIGNS: Reviewed. GENERAL: Well-developed in no acute distress. HEENT: No sclera icterus. Extraocular movements grossly intact. Moist buccal mucosa. Head is atraumatic, normocephalic. ABDOMEN: Soft. Nondistended. Tenderness to right lower quadrant. No peritoneal signs. NEUROLOGIC: Alert and oriented. Cranial nerves II through XII grossly intact. ASSESSMENT: 1. Abdominal pain 2. Acute appendicitis with microperforation PLAN: 1. Advance diet to full liquids 2. Cepacol lozenges for sore throat 3. Continue antibiotics. Monitor WBC 4. Pain control. Add [place] PRN. Add IV Toradol 5. Increase activity as tolerated 6. Possible discharge home tomorrow Nurse practitioner note has been reviewed by physician. Signing provider agrees with the documented findings, assessment, and plan of care. Objective - Vital Signs Vital signs: Vital Signs Temp 99.8 F H 03/07/19 07:15 Pulse 87 03/07/19 07:15 Resp 18 03/07/19 07:15 BP 156/67 03/07/19 07:15 Pulse Ox 96 03/07/19 07:15 Intake & Output 03/06/19 03/07/19 03/07/19 18:59 06:59 18:59 Intake Total 1200 360 520 Output Total 5 2 Balance 1195 358 520 Intake: IV 800 Oral 400 360 520 Output: Urine 2 Estimated Blood Loss 5 Other: # Voids 2 2 - Labs CBC & Chem 7: 03/07/19 06:15 03/06/19 00:49 Labs: Abnormal Lab Results - Last 24 Hours (Table) 03/06/19 03/06/19 03/06/19 Range/Units 11:26 13:53 16:29 RBC (4.30-5.90) m/uL Hgb (13.0-17.5) gm/dL Hct (39.0-53.0) % Monocytes # (0-1.0) k/uL POC Glucose (mg/dL) 149 H 168 H 173 H (75-99) mg/dL 10/15/19 10/15/19 10/15/19 Range/Units 18:53 20:01 21:29 RBC (4.30-5.90) m/uL Hgb (13.0-17.5) gm/dL Hct (39.0-53.0) % Monocytes # (0-1.0) k/uL POC Glucose (mg/dL) 178 H 220 H 175 H (75-99) mg/dL 03/07/19 03/07/19 03/07/19 Range/Units 00:34 06:15 06:46 RBC 3.83 L (4.30-5.90) m/uL Hgb 11.4 L (13.0-17.5) gm/dL Hct 35.3 L (39.0-53.0) % Monocytes # 1.1 H (0-1.0) k/uL POC Glucose (mg/dL) 125 H 218 H (75-99) mg/dL
[2019-03-07 11:48] LABS: Glucose,Whole Blood 141 mg/dL (75-99)
[2019-03-07] MEDS: BENZOCAINE/MENTHOL LOZENG 1 EACH LOZENGE MUCOUS MEM PRN ×3 (12:06→23:04)
--- NOTE | 2019-03-07 15:38 | P.PN ---
Subjective Progress Note Date: 03/07/19 This is 59-year-old gentleman with history of diabetes mellitus, hypertension, ostial arthritis, and skin disorder, migraines, neuropathy, cardiac catheterization, depression, former nicotine dependence presented to the ER with complaints of right lower quadrant abdominal pain that initially started perium bilical, radiating to right lower quadrant that began yesterday around 1800. Denies nausea vomiting, constipation or diarrhea. EKG normal sinus rhythm, troponin negative. Denies chest pain, palpitations or shortness of breath. Denies fever or chills. Afebrile, WBC 13.5. CT of abdomen and pelvis reported thickened fluid filled appendix with surrounding inflammatory changes related to acute appendicitis, cholelithiasis, small umbilical hernia, no evidence of free air, no free fluid in the pelvis.NPO, with insulin pump, developed hypoglycemia this morning with blood sugars down to 64. IV fluids adjusted to D5W, while awaiting for surgery. 03/07/2019 status post laparoscopic appendectomy postop day #1, tolerated procedure well. OR note reporting microperforation .Complains of mild sore t hroat. T-max 99.8, normal WBC. Tolerating clear liquids, no nausea, no vomiting. Positive flatus, no bowel movement. insulin pump resumed yesterday, blood sugars controlled. Complains of significant pain right lower quadrant. Denies chest pain, palpitations or shortness of breath. Objective - Vital Signs Vital signs: Vital Signs Temp 99.8 F H 03/07/19 07:15 Pulse 87 03/07/19 07:15 Resp 18 03/07/19 07:15 BP 156/67 03/07/19 07:15 Pulse Ox 96 03/07/19 07:15 Intake & Output 03/06/19 03/07/19 03/07/19 18:59 06:59 18:59 Intake Total 1200 360 520 Output Total 5 2 Balance 1195 358 520 Intake: IV 800 Oral 400 360 520 Output: Urine 2 Estimated Blood Loss 5 Other: # Voids 2 2 - Exam VITAL SIGNS: As above GENERAL: Sitting up in chair, no acute distress HEENT: Conjunctivae normal. eyes normal. Oral mucosa moist NECK: No JVD. No thyroid enlargement. No LNs CARDIOVASCULAR: S1, S2 regular. No murmur RESPIRATION: Breath sounds diminished in the bases. No rhonchi or crackles. No wheezing ABDOMEN: Soft, mildly distended, status post surgery, tender right lower quadrant .laparoscopic sites clean dry and intact.No guarding. no masses palpable. Bowel sounds heard. LEGS: No edema. no swelling . PSYCHIATRY: Alert and oriented X3, mood and affect normal. NERVOUS SYSTEM: Cranial N 2-12 grossly normal. Moves all 4 limbs. Diffuse weakness No focal deficits. Strength and sensation grossly intact.. Skin: no rash - Labs CBC & Chem 7: 03/07/19 06:15 03/06/19 00:49 Labs: Abnormal Lab Results - Last 24 Hours (Table) 03/06/19 03/06/19 03/06/19 Range/Units 11:26 13:53 16:29 RBC (4.30-5.90) m/uL Hgb (13.0-17.5) gm/dL Hct (39.0-53.0) % Monocytes # (0-1.0) k/uL POC Glucose (mg/dL) 149 H 168 H 173 H (75-99) mg/dL 03/06/19 03/06/19 03/06/19 Range/Units 18:53 20:01 21:29 RBC (4.30-5.90) m/uL Hgb (13.0-17.5) gm/dL Hct (39.0-53.0) % Monocytes # (0-1.0) k/uL POC Glucose (mg/dL) 178 H 220 H 175 H (75-99) mg/dL 03/07/19 03/07/19 03/07/19 Range/Units 00:34 06:15 06:46 RBC 3.83 L (4.30-5.90) m/uL Hgb 11.4 L (13.0-17.5) gm/dL Hct 35.3 L (39.0-53.0) % Monocytes # 1.1 H (0-1.0) k/uL POC Glucose (mg/dL) 125 H 218 H (75-99) mg/dL Assessment and Plan Assessment: -Right lower quadrant Abdominal pain, Acute appendicitis with microperforation, status post appendectomy -Diabetes mellitus, with insulin pump; nothing by mouth, hypoglycemic, resolved- now controlled. -Neuropathy -Hypertension -Osteoarthritis -Depression -Former nicotine dependence Plan: Continue on current medication regime ,monitoring and symptomatic treatment. Aggressive pulmonary toileting with Incentive spirometer ordered. Antibiotics of Zosyn, pain management and diet advancement as per surgery. Close monitoring of blood sugars. Medically cleared for discharge.follow-up with PCP in one week .Thank you Dr. Bennett for the consult. The impression and plan of care has been dictated as directed. : I performed a history and examination of this patient, discussed the same with the dictator. I agree with the dictator's note ,documented as a scribe. Any additional findings or plans will be noted.
[2019-03-07 16:49] LABS: Glucose,Whole Blood 108 mg/dL (75-99)
[2019-03-07 20:37] LABS: Glucose,Whole Blood 140 mg/dL (75-99)
[2019-03-08] MEDS: PIPERACILLIN-TAZOBACTAM 3.375 GM in SODIUM CHLORIDE 0.9% 100 ML IVPB SCH ×2 (00:04→08:57)
[2019-03-08 00:23] VITALS: RESP 18
[2019-03-08 05:13] LABS: Glucose,Whole Blood 65 mg/dL (75-99)
[2019-03-08 06:32] LABS: Glucose,Whole Blood 97 mg/dL (75-99)
[2019-03-08 07:25] VITALS: BP 171/77; PULSE 70; TEMP 98.2
[2019-03-08] MEDS: BENZOCAINE/MENTHOL LOZENG 1 EACH LOZENGE MUCOUS MEM PRN (08:01)
[2019-03-08] MEDS: NADOLOL 20 MG TAB PO SCH (08:01)
[2019-03-08] MEDS: FAMOTIDINE 20 MG/2 ML VIAL IV SCH (08:01)
[2019-03-08] MEDS: HYDROcodone/APAP 5-325MG 1 EACH TAB PO PRN (08:07)
[2019-03-08] MEDS ORDERED: DOCUSATE 100 MG CAP PO SCH (11:00)
[2019-03-08 11:34] LABS: Glucose,Whole Blood 122 mg/dL (75-99)
--- NOTE | 2019-03-08 14:15 | P.DS ---
Providers Date of admission: 03/06/19 03:26 Expected date of discharge: 03/08/19 Attending physician: Stanislav Bennett Consults: 03/06/19 07:17 Consult Physician Routine Consulting Provider: Kendrick Salguero Reason/Comments: medical management Do you want consulting provider notified?: Yes Primary care physician: Kendrick Salguero [facility] Course: 5-year-old male who presented to the emergency room a chief complaint of abdominal pain. Workup completed in the emergency room revealed evidence of appendicitis. Patient underwent laparoscopic appendectomy. He was found to microperforation of the appendix. Patient is doing well postoperatively without any immediate complications. He is tolerating diet. Pain is controlled on oral medications. Vital signs have been stable. He is stable for discharge home today on oral antibiotics. Please see EMR for further hospital course details. Discharge Diagnosis: 1. Abdominal pain 2. Acute appendicitis with microperforation Nurse practitioner note has been reviewed by physician. Signing provider agrees with the documented findings, assessment, and plan of care. Patient Condition at Discharge: Stable Plan - Discharge Summary New Discharge Prescriptions: New Hydrocodone/Acetaminophen [[place] 5-325] 1 tab PO Q4HR PRN 3 Days #18 tab PRN Reason: Pain Docusate [Colace] 100 mg PO BID #30 capsule No Action Nadolol 20 mg PO DAILY Insulin Aspart (For Pump) [NovoLOG (For Pump)] 1 dose SQ-PUMP CONTINUOUS Atorvastatin [Lipitor] 20 mg PO DAILY Baclofen [Lioresal] 20 mg PO TID PRN PRN Reason: Pain Ubidecarenone [Co Q-10] 200 mg PO DAILY Losartan [Cozaar] 50 mg PO BID Aspirin [Adult Low Dose Aspirin EC] 81 mg PO DAILY Discharge Medication List Nadolol 20 mg PO DAILY 09/12/16 [History] Atorvastatin [Lipitor] 20 mg PO DAILY 10/27/16 [History] Insulin Aspart (For Pump) [NovoLOG (For Pump)] 1 dose SQ-PUMP CONTINUOUS 10/27/16 [History] Aspirin [Adult Low Dose Aspirin EC] 81 mg PO DAILY 03/06/19 [History] Baclofen [Lioresal] 20 mg PO TID PRN 03/06/19 [History] Losartan [Cozaar] 50 mg PO BID 03/06/19 [History] Ubidecarenone [Co Q-10] 200 mg PO DAILY 03/06/19 [History] Docusate [Colace] 100 mg PO BID #30 capsule 03/08/19 [Rx] Hydrocodone/Acetaminophen [Val[place] 5-325] 1 tab PO Q4HR PRN 3 Days #18 tab 03/08/19 [Rx] Follow up Appointment(s)/Referral(s): Kendrick Salguero DO [Primary Care Provider] - 1-2 days Stanislav Bennett MD [STAFF PHYSICIAN] - 1 Week Patient Instructions/Handouts: Laparoscopic Appendectomy (GEN) Activity/Diet/Wound Care/Special Instructions: No driving while taking [place] No lifting over 10 pounds You may shower. No soaking or tub baths Very light activity until you are reevaluated at your follow up appointment with your surgeon Discharge Disposition: HOME SELF-CARE
[2019-03-08] MEDS ORDERED: FAMOTIDINE 20 MG TAB PO SCH (21:00)
== END 2019-03-08 13:38 | disposition home or self-care (01) ==
LOC: EC 00:17 → 1SOBS 03:26
PROVIDERS: ADMIT Surgery; ATTEND Surgery
DX: K35.80 Unspecified acute appendicitis (principal); K80.20 Calculus of gallbladder without cholecystitis without obstruction; J02.9 Acute pharyngitis, unspecified; R07.2 Precordial pain; I49.8 Other specified cardiac arrhythmias; I10 Essential (primary) hypertension; G43.909 Migraine, unspecified, not intractable, without status migrainosus; E11.40 Type 2 diabetes mellitus with diabetic neuropathy, unspecified; E11.649 Type 2 diabetes mellitus with hypoglycemia without coma; F32.9 Major depressive disorder, single episode, unspecified; M19.90 Unspecified osteoarthritis, unspecified site; M54.2 Cervicalgia; I25.10 Atherosclerotic heart disease of native coronary artery without angina pectoris; M54.9 Dorsalgia, unspecified; R20.0 Anesthesia of skin; L98.9 Disorder of the skin and subcutaneous tissue, unspecified; Z79.899 Other long term (current) drug therapy; Z79.4 Long term (current) use of insulin; Z79.82 Long term (current) use of aspirin; Z88.1 Allergy status to other antibiotic agents; Z87.891 Personal history of nicotine dependence; Z96.41 Presence of insulin pump (external) (internal); Z80.9 Family history of malignant neoplasm, unspecified
CPT/HCPCS: 44970; 99285; 36415; 93005; 88304; 80053; 83605; 83690; 84484; 85025 ×2; 81003; 74177; G0378 ×3; J2543 ×3; J2250; J2270; J2710; J2405; J2001; J3010; J1885 ×2; J0330; J2704; J1170 ×2; Q9967; 96361; 96365; 96375; 96376

== ENCOUNTER 2019-05-09 19:48 | Emergency (ER) | payer BC ==
[2019-05-09 19:55] VITALS: RESP 18
[2019-05-09] MEDS ORDERED: KETOROLAC 30 MG/ML 1 ML VIAL IM STA (20:47)
--- NOTE | 2019-05-09 20:49 | ED ---
General Adult HPI - General Chief complaint: Extremity Injury, Lower Stated complaint: Heel Pain Time Seen by Provider: 05/09/19 20:39 Source: patient, RN notes reviewed Mode of arrival: ambulatory Limitations: no limitations - History of Present Illness Initial comments: 59-year-old male with a past medical history of diabetes mellitus, hypertension presents to the emergency department for a chief complaint of left posterior heel pain. Patient states that he has had posterior heel pain for several months on and off. However today his autistic son was running outside. States he had to monet after him barefoot. States that after this occurred he had worsening left heel pain to the point where he feels he cannot walk on it. Denies any redness. Denies any pain in the plantar aspect of the foot. IPatient has no other complaints at this time including shortness of breath, chest pain, abdominal pain, nausea or vomiting, headache, or visual changes. - Related Data Home Medications Medication Instructions Recorded Confirmed Nadolol 20 mg PO DAILY 09/12/16 05/09/19 Atorvastatin [Lipitor] 20 mg PO DAILY 10/27/16 05/09/19 Insulin Aspart (For Pump) [NovoLOG 1 dose SQ-PUMP CONTINUOUS 10/27/16 05/09/19 (For Pump)] Aspirin [Adult Low Dose Aspirin EC] 81 mg PO DAILY 03/06/19 05/09/19 Baclofen [Lioresal] 20 mg PO TID PRN 03/06/19 05/09/19 Losartan [Cozaar] 50 mg PO BID 03/06/19 05/09/19 Ubidecarenone [Co Q-10] 200 mg PO DAILY 03/06/19 05/09/19 Previous Rx's Medication Instructions Recorded Levofloxacin [Levaquin] 500 mg PO DAILY #5 tab 03/08/19 Allergies Allergy/AdvReac Type Severity Reaction Status Date / Time vancomycin Allergy Rash/Hives Verified 05/09/19 19:55 Review of Systems ROS Statement: Those systems with pertinent positive or pertinent negative responses have been documented in the HPI. ROS Other: All systems not noted in ROS Statement are negative. Past Medical History Past Medical History: Diabetes Mellitus, Hypertension, Osteoarthritis (OA), Skin Disorder Additional Past Medical History / Comment(s): MIGRAINES, NECK AND BACK PAIN, SORES ON LEGS FROM DIABETES, STATES LEFT ARM NUMBNESS. , EPISODE OF VERTIGO (AUGUST 2016), NEUROPATHY OF FEET AND HANDS. , OCCASIONAL BLOOD WITH BOWEL MOVEMENTS. History of Any Multi-Drug Resistant Organisms: None Reported Past Surgical History: Heart Catheterization, Orthopedic Surgery Additional Past Surgical History / Comment(s): ankle sx Past Anesthesia/Blood Transfusion Reactions: No Reported Reaction Past Psychological History: Depression Smoking Status: Former smoker Past Alcohol Use History: Occasional, Rare Past Drug Use History: None Reported - Past Family History Sister(s) Family Medical History: Cancer General Exam Limitations: no limitations General appearance: alert, in no apparent distress Head exam: Present: atraumatic, normocephalic, normal inspection Eye exam: Present: normal appearance, PERRL, EOMI. Absent: scleral icterus, conjunctival injection, periorbital swelling ENT exam: Present: normal exam, mucous membranes moist Neck exam: Present: normal inspection, full ROM. Absent: tenderness, meningismus, lymphadenopathy Respiratory exam: Present: normal lung sounds bilaterally. Absent: respiratory distress, wheezes, rales, rhonchi, stridor Cardiovascular Exam: Present: regular rate, normal rhythm, normal heart sounds. Absent: systolic murmur, diastolic murmur, rubs, gallop, clicks Extremities exam: Present: full ROM (full range of motion of the left ankle), tenderness (tenderness is noted to the posterior aspect of the left heel.), normal capillary refill (capillary refill less than 2 seconds, DP pulse 2+ in the left lower extremity.). Absent: pedal edema, joint swelling, calf tenderness, other (no erythema or edema noted of the left foot or ankle. skin exam normal) Course Vital Signs 05/09/19 19:51 Temperature 98.2 F Pulse Rate 106 H Respiratory 18 Rate Blood Pressure 166/79 O2 Sat by Pulse 98 Oximetry Medical Decision Making - Medical Decision Making Review of the left foot shows a large Achilles calcaneal spur. No fracture seen. I did discuss with the patient. Recommended anti-inflammatories. He was given Toradol here. He will follow up with primary care in 1-2 days. He will return if he has any worsening symptoms. Disposition Clinical Impression: Calcaneal spur Disposition: HOME SELF-CARE Condition: Good Instructions (If sedation given, give patient instructions): Heel Spur (ED) Additional Instructions: take Motrin and Tylenol for pain.please follow up with primary care in 1-2 days. If any worsening symptoms return to the emergency department. Is patient prescribed a controlled substance at d/c from ED?: No Referrals: Kendrick Salguero DO [Primary Care Provider] - 1-2 days Time of Disposition: 21:38
--- NOTE | 2019-05-09 21:04 | XR ---
EXAMINATION TYPE: XR foot complete LT DATE OF EXAM: 05/09/2019 COMPARISON: NONE HISTORY: Heel pain for one month TECHNIQUE: 3 views FINDINGS: There are moderate Achilles calcaneal spurs. Calcaneus is intact. Metatarsals are intact. I see no fracture nor dislocation. IMPRESSION: Large Achilles calcaneal spurring. No fracture seen.
[2019-05-09 21:51] VITALS: BP 137/79; PULSE 71; TEMP 98
== END 2019-05-09 21:51 | disposition home or self-care (01) ==
LOC: EC 19:48
DX: M77.32 Calcaneal spur, left foot (principal); I10 Essential (primary) hypertension; M19.90 Unspecified osteoarthritis, unspecified site; F32.9 Major depressive disorder, single episode, unspecified; E11.42 Type 2 diabetes mellitus with diabetic polyneuropathy; Z79.4 Long term (current) use of insulin; Z79.82 Long term (current) use of aspirin; Z79.899 Other long term (current) drug therapy; Z88.1 Allergy status to other antibiotic agents; Z95.5 Presence of coronary angioplasty implant and graft; Z87.891 Personal history of nicotine dependence; Z98.890 Other specified postprocedural states
CPT/HCPCS: 73630; 99283; 96372; J1885

== ENCOUNTER → 2020-05-13 | Outpatient (CLI) | payer BC ==
[2020-05-13 18:58] LABS: African American GFR (CKD) 106.5 (60.0-200.0); Anion Gap 10.8 mmol/L (4.00-12.00); BUN/Creat Ratio 13.33 Ratio (12.00-20.00); Calcium 9.5 mg/dL (8.7-10.3); Carbon Dioxide 24.2 mmol/L (21.6-31.8); Chol/HDL Ratio 5.88; Magnesium 1.9 mg/dL (1.5-2.4); Non-African American GFR(CKD) 91.9 (60.0-200.0); Potassium 4.3 mmol/L (3.5-5.5); T4, Free (Free Thyroxine) 0.8 ng/dL (0.80-1.80)
== END | disposition home or self-care (01) ==
LOC: LABWHC1 10:14
PROVIDERS: ATTEND Nurse Practitioner
DX: I10 Essential (primary) hypertension (principal); I25.10 Atherosclerotic heart disease of native coronary artery without angina pectoris; R00.2 Palpitations
CPT/HCPCS: 36415; 80048; 80061; 83721; 83735; 84439; 84443; 84450; 84460

== ENCOUNTER → 2020-08-06 | Outpatient (CLI) | payer BC ==
[2020-08-07 02:27] LABS: African American GFR (CKD) 83.5 (60.0-200.0); Anion Gap 11.6 mmol/L (4.00-12.00); BUN/Creat Ratio 17.27 Ratio (12.00-20.00); Calcium 9.9 mg/dL (8.7-10.3); Carbon Dioxide 22.4 mmol/L (21.6-31.8); Chol/HDL Ratio 4.59; LDL Cholesterol,Calculated 73.4 mg/dL (0.0-131.0); Magnesium 1.9 mg/dL (1.5-2.4); Non-African American GFR(CKD) 72.1 (60.0-200.0); Potassium 4.5 mmol/L (3.5-5.5); VLDL Calculation 30.6 mg/dL (5.00-40.00)
== END | disposition home or self-care (01) ==
LOC: LABWHC1 11:09
PROVIDERS: ATTEND Nurse Practitioner
DX: E78.2 Mixed hyperlipidemia (principal); I25.10 Atherosclerotic heart disease of native coronary artery without angina pectoris
CPT/HCPCS: 36415; 80048; 80061; 83735; 84450; 84460

== ENCOUNTER → 2023-06-10 | Outpatient (CLI) | payer BC ==
[2023-06-10 16:16] LABS: ALT 38 U/L (10-49); AST 29 U/L (14-35); Albumin 4.7 g/dL (3.8-4.9); Albumin/Globulin Ratio 1.81 Ratio (1.60-3.17); Alkaline Phosphatase 64 U/L (41-126); Blood Urea Nitrogen 17.6 mg/dL (9.0-27.0); Calcium 9.5 mg/dL (8.7-10.3); Carbon Dioxide 21.2 mmol/L (21.6-31.8); Chloride 102 mmol/L (96-109); Chol/HDL Ratio 3.67 Ratio; Globulin 2.6 g/dL (1.6-3.3); Glucose 149 mg/dL (70-110); LDL Cholesterol,Calculated 39.2 mg/dL (0.0-131.0); Potassium 4.2 mmol/L (3.5-5.5); Sodium 137 mmol/L (135-145); Total Bilirubin 0.6 mg/dL (0.3-1.2); Total Protein 7.3 g/dL (6.2-8.2)
== END | disposition home or self-care (01) ==
LOC: LABWHC1 09:42
PROVIDERS: ATTEND Internal Medicine Endocrinology, Diabetes & Metabolism
DX: E11.65 Type 2 diabetes mellitus with hyperglycemia (principal); E78.2 Mixed hyperlipidemia
CPT/HCPCS: 36415; 80053; 80061; 82043; 82570; 83036; 84443

== ENCOUNTER → 2023-10-10 | Outpatient (CLI) | payer BC ==
[2023-10-10 16:17] LABS: ALT 41 U/L (10-49); AST 29 U/L (14-35); Albumin 4.8 g/dL (3.8-4.9); Albumin/Globulin Ratio 1.92 Ratio (1.60-3.17); Alkaline Phosphatase 69 U/L (41-126); BUN/Creat Ratio 19.33 Ratio (12.00-20.00); Blood Urea Nitrogen 17.4 mg/dL (9.0-27.0); Calcium 9.5 mg/dL (8.7-10.3); Carbon Dioxide 23.6 mmol/L (21.6-31.8); Chloride 102 mmol/L (96-109); Chol/HDL Ratio 4.51 Ratio; Globulin 2.5 g/dL (1.6-3.3); Glucose 146 mg/dL (70-110); LDL Cholesterol,Calculated 63.2 mg/dL (0.0-131.0); Potassium 4.2 mmol/L (3.5-5.5); Sodium 137 mmol/L (135-145); Total Bilirubin 0.5 mg/dL (0.3-1.2); Total Protein 7.3 g/dL (6.2-8.2)
[2023-10-11 14:08] LABS: Microalbumin Creatinine Ratio <8 mg/g Cr (0-30)
== END | disposition home or self-care (01) ==
LOC: LABWHC1 08:57
PROVIDERS: ATTEND Internal Medicine Endocrinology, Diabetes & Metabolism
DX: E11.65 Type 2 diabetes mellitus with hyperglycemia (principal)
CPT/HCPCS: 36415; 80053; 80061; 82043; 82570; 83036; 84443